=== PATIENT | female | born 1990 ===

== ENCOUNTER 2021-03-31 20:24 | Emergency (ER) | payer OTHER, SELFPAY ==
--- NOTE | ~2021-03-31 | XR_ITS ---
EXAMINATION: XR LUMBOSACRAL SPINE CLINICAL INFORMATION: Pain. COMPARISON: None TECHNIQUE: Three views of the lumbosacral spine. FINDINGS: The vertebral bodies and posterior elements are normal. The disc spaces are preserved and the vertebral alignment is normal. The paraspinal soft tissues are normal. Cholecystomy clips in the right upper quadrant. Surgical clip in left hemipelvis. XR/XR lumbar spine 2-3V IMPRESSION: Lumbar spine appears relatively well-preserved. No acute osseous findings.
[2021-03-31 20:32] VITALS: BP 127/72; PULSE 86; RESP 18; TEMP 36.7; O2SAT 99; BMI 41.5
[2021-03-31 20:55] LABS: Appearance Urine HAZY; Color Urine YELLOW; Glucose Urine UA NEG (NEG); Leukocyte Esterase Urine NEG (NEG); Nitrite Urine NEG (NEG); Urine Blood NEG (NEG); Urine Ketones NEG (NEG); Urine Protein NEG (NEG-TRACE)
[2021-03-31 20:57] LABS: UPreg QC Valid YES; Urine Pregnancy NEGATIVE (NEGATIVE)
--- NOTE | 2021-03-31 22:57 | ED_ITS ---
HPI - General Adult General Chief complaint: Abdominal Pain Stated complaint: Lower back pain Time Seen by Provider: 03/31/21 22:57 Source: patient Mode of arrival: ambulatory History of Present Illness HPI narrative: This is a 30-year-old female without significant past medical history who presents with atraumatic back pain for a few weeks and she states is now radiating into lower extremities as well as into the abdominal area. She de nies any fever, chills, nausea, vomiting, urinary pain/burning/frequency, shortness of breath/chest pain/palpitations. She states that she has ?tried everything? and that her primary care provider is unable to evaluate her until April. Related Data Previous Rx's Medication Instructions Recorded ketorolac 10 mg PO Q6H PRN 5 Days #20 tab 04/01/21 Allergies Allergy/AdvReac Type Severity Reaction Status Date / Time No Known Allergies Allergy Verified 03/31/21 20:34 Review of Systems Review of Systems: Pertinent positives and negatives as stated in HPI 10 point review of systems is otherwise negative. PMFSH Past Medical History Source: nursing notes reviewed Medical History Asthma delivery delivered Surgical History Hx of cholecystectomy Social History Social History Advance Directives: No Patient : No Physical Exam Vital Signs: Vital Signs: Last Vital Signs Temp 98.1 F 03/31/21 20:32 Pulse 86 03/31/21 20:32 Resp 18 03/31/21 20:32 BP 127/72 03/31/21 20:32 Pulse Ox 99 03/31/21 20:32 Body Mass Index 41.5 VITAL SIGNS: Reviewed. GENERAL: Well developed, well nourished, in no acute distress. HEAD: Normocephalic/atraumatic EYES: PERRLA, EOMI OROPHARYNX: no oral lesions noted, posterior pharynx clear LUNGS: Normal breath sounds. No adventitious sounds or accessory muscle use. SpO2<99> CARDIOVASCULAR: Regular rate and rhythm without noted murmurs ABDOMEN: Obese, Soft, non-tender, non-distended with bowel sounds. BACK: No midline vertebral tenderness NEUROLOGIC: Alert and oriented x 4. Strength and sensation to light touch were grossly intact x 4, bilateral lower extremities neurovascularly intact Course Course Course Narrative: 30-year-old female with history and clinical presentation consistent with chronic back pain and radicular symptoms. Will attempt combination analgesics for pain control. Review of all investigations negative for any acute findings and on re- evaluation patient states her pain has had minimal improvement. Patient reassu red and provided with outpatient regimen for pain control. Medical Decision Making Lab Data Labs: Lab Results 03/31/21 03/31/21 Range/Units 20:47 20:47 Urine Color YELLOW Urine Appearance HAZY Urine pH 7.0 (5.0-8.0) Ur Specific [place] 1.010 (1.005-1.025) Urine Protein NEG (NEG-TRACE) MG/DL Urine Glucose (UA) NEG (NEG) MG/DL Urine Ketones NEG (NEG) MG/DL Urine Blood NEG (NEG) Urine Nitrite NEG (NEG) Ur Leukocyte Esterase NEG (NEG) Urine Test NEGATIVE (NEGATIVE) Discharge Plan Discharge Clinical Impression: Back pain Patient Disposition: Home, Self-Care Instructions: Chronic Back Pain (DC), Lower Back Exercises (ED) Additional Instructions: 1. Tylenol 1000 mg, orally, every 6 hours as needed for pain control. Do not exceed 4000 mg within 24 hours. 2. Lidocaine patch, available [id number], apply to area of maximal tenderness as directed on the outside packaging. 3. Follow-up with your primary care provider in the next 2-3 days for re- evaluation. Return to the ER for acute worsening of your symptoms. Prescriptions: New ketorolac 10 mg tablet 10 mg PO Q6H PRN (Reason: pain) 5 Days Qty: 20 RF: 0 Referrals: Physician,Unknown [Primary Care Provider] - 2 days
[2021-04-01] MEDS: Acetaminophen 325 MG TABLET 975 MG PO (00:01)
[2021-04-01] MEDS: Ketorolac Tromethamine 15 MG/ML VIAL IM (00:02)
[2021-04-01] MEDS: Lidocaine 4 % Patch ADH..PATCH 1 PATCH TRANSDERMA (00:02)
[2021-04-01 01:52] VITALS: BP 121/66; PULSE 74; RESP 16; O2SAT 100
--- NOTE | 2021-04-01 01:54 | PC.NURSE ---
pt seated in hallway, awake and alert. pt reports she has been experiencing lower mid back pain for months, and new suprapubic abdominal pain for days. her last period was 1 week ago, normal amount and flow.
== END 2021-04-01 02:16 | disposition home or self-care (01) ==
PROVIDERS: Emergency Provider Student in an Organized Health Care Education/Training Program
DX: M54.9 Dorsalgia, unspecified (principal)
CPT/HCPCS: 72100; 81003; 81025; 96372; 99284; J1885

== ENCOUNTER → 2021-09-02 12:20 | Outpatient (BNVA) | payer OTHER, SELFPAY | PROVIDERS: PCP Internal Medicine; Referring Provider Internal Medicine; Visit Provider Physician Assistant Surgical ==

== ENCOUNTER → 2021-09-10 07:25 | Outpatient (BNVA) | payer OTHER, SELFPAY | PROVIDERS: PCP Internal Medicine; Visit Provider Surgery ==

== ENCOUNTER 2021-09-11 09:55 | Outpatient (REF) | payer OTHER, SELFPAY ==
--- NOTE | ~2021-09-11 | XR_ITS ---
EXAMINATION: XR CHEST CLINICAL INFORMATION: Obesity COMPARISON: None TECHNIQUE: 2 views of the chest were obtained. FINDINGS: No significant abnormality is noted involving the heart, lungs, mediastinum, bony thorax or soft tissues. XR/XR chest 2V IMPRESSION: Unremarkable examination.
--- NOTE | 2021-09-11 10:03 | ECG_ITS ---
Test Reason : e66.01 Blood Pressure : / mmHG Vent. Rate : 071 BPM Atrial Rate : 071 BPM P-R Int : 158 ms QRS Dur : 078 ms QT Int : 370 ms P-R-T Axes : 028 061 033 degrees QTc Int : 402 ms Normal sinus rhythm Normal ECG No previous ECGs available Referred By: Joel España Electronically Signed By:WILLIAM RAMOS
[2021-09-11 10:13] LABS: MANUAL DIFF FLAG NO
[2021-09-11 10:43] LABS: Basophils Percent Auto 0.2 % (0-2); Eosinophils Absolute Auto 0.1 X10*3/uL (0.0-0.4); Eosinophils Percent Auto 1.2 % (0-4); Hematocrit 36.3 % (37.0-47.0); Hemoglobin 10.9 g/dl (12.0-16.0); Imm Gran Abs Auto 0.01 X10*3/uL (0.00-0.03); Imm Gran Pct Auto 0.2 % (0.0-0.4); Lymphocytes Absolute Auto 1.8 X10*3/uL (1.2-4.9); Lymphocytes Percent Auto 30.8 % (20-40); Mean Corpuscular Hemoglobin 24.1 pg (27.0-33.0); Mean Corpuscular Volume 80.3 fL (80.0-98.0); Mean Platelet Volume 10.9 fL (9.4-12.3); Monocytes Absolute Auto 0.3 X10*3/uL (0.1-1.2); Monocytes Percent Auto 4.6 % (2-11); Neutrophils Absolute Auto 3.7 x10*3/uL (2.0-8.3); Platelet Count 238 X10*3/uL (160-400); Red Blood Count 4.52 X10*6/uL (4.20-5.50); Red Cell Distribution Width 15.8 % (11.0-16.0); White Blood Count 5.9 X10*3/uL (4.8-10.8)
[2021-09-11 10:51] LABS: Estimated Average Glucose 100 mg/dL; Hemoglobin A1c % 5.1 %
[2021-09-11 11:15] LABS: Alanine Aminotransferase 16 U/L (0-31); Albumin Level 3.9 g/dL (3.5-5.0); Alkaline Phosphatase 75 U/L (39-117); Anion Gap 9 (12-20); Aspartate Amino Transferase 16 U/L (5-31); Bilirubin Total 0.3 mg/dL (0.0-1.0); Blood Urea Nitrogen 9 mg/dL (9-16); C Reactive Protein 0.35 mg/dL (< or = 0.50); Calcium 9.2 mg/dL (8.4-10.2); Carbon Dioxide 29 mmol/L (22-29); Chloride 106 mmol/L (96-108); Cholesterol 174 mg/dL; Estimated Glomerular Filt Rate > 60; Glucose Random 89 mg/dL (60-115); HDL Cholesterol 33 mg/dL; Iron 67 mcg/dL (30-160); LDL Cholesterol Calculated 75 mg/dl; Percent Iron Saturation 16 % (15-50); Sodium 140 mmol/L (135-145); Total Iron Binding Capacity 409 mcg/dL (228-428); Triglycerides 333 mg/dL; Unsaturated Iron Binding 342 ug/dL
[2021-09-11 11:35] LABS: Ferritin 7 ng/mL (10-122); Insulin 16 uU/mL (2-29); TSH reflex Free T4 1.31 uIU/mL (0.32-4.0); Vitamin D 25-OH Total 10.8 ng/mL (>30)
[2021-09-11 12:14] LABS: Folate 13.3 ng/mL (> or = 4.0); Vitamin B12 394 pg/mL (200-900)
[2021-09-15 09:01] LABS: Vitamin B1 8 nmol/L (8-30)
[2021-09-15 15:32] LABS: Calcium (PTHI) 9.2 mg/dL (8.6-10.2); PTHI 47 pg/mL (14-64)
[2021-09-16 00:32] LABS: Zinc 53 mcg/dL (60-130)
[2021-09-16 16:37] LABS: Vitamin A 31 mcg/dL (38-98)
== END 2021-09-11 09:56 | disposition home or self-care (01) ==
LOC: HO.LAB 09:55
PROVIDERS: Visit Provider Surgery
DX: E66.01 Morbid (severe) obesity due to excess calories (principal)
CPT/HCPCS: 36415; 71046; 80053; 80061; 82306; 82607; 82728; 82746; 83036; 83525; 83540; 83970; 84425; 84443; 84590; 84630; 85025; 86140; 93005

== ENCOUNTER 2021-10-07 07:39 | Outpatient (REF) | payer OTHER, SELFPAY ==
[2021-10-08 12:01] LABS: H Pylori Breath Test Negative (Negative)
== END 2021-10-07 07:40 | disposition home or self-care (01) ==
LOC: HO.LNP 07:39
PROVIDERS: PCP Internal Medicine; Visit Provider Surgery
DX: E66.01 Morbid (severe) obesity due to excess calories (principal); Z68.41 Body mass index [BMI] 40.0-44.9, adult; Z90.49 Acquired absence of other specified parts of digestive tract; Z11.0 Encounter for screening for intestinal infectious diseases
CPT/HCPCS: 83013; 99211

== ENCOUNTER 2021-10-10 10:40 | Outpatient (REF) | payer OTHER, SELFPAY ==
--- NOTE | ~2021-10-10 | US_ITS ---
EXAMINATION: US COMPLETE ABDOMEN WITH LIVER ELASTOGRAPHY CLINICAL INFORMATION: Obesity COMPARISON: None. TECHNIQUE: Real-time imaging of the abdominal viscera. Noninvasive ultrasound liver fibrosis assessment is performed using Madeleine ElastPQ point quantification shear wave elastography (pSWE) with a C5-2 MHz transducer. Multiple elastography samples are obtained. FINDINGS: PANCREAS: Normal. The visualized pancreatic head and body are normal in appearance. The remainder of the pancreas is obscured from visualization by the overlying bowel gas. ABDOMINAL AORTA: The proximal, middle, and distal aortic segments are normal in caliber. INFERIOR VENA CAVA: Visualized portions are normal. LIVER: The liver demonstrates normal size, contour and mildly heterogeneous in echogenicity. No focal lesion or intrahepatic biliary duct dilatation. The right lobe measures 16.7 cm in length. The left lobe measures 12.7 cm in length. Portal flow is towards the liver (hepatopetal). Shear wave liver elastography median stiffness is 1.54 m/s (reference: normal median stiffness is 1.3 m/s or less). IQR/median stiffness to assess sampling precision is .05 (reference: good quality data set is IQR/median stiffness of 0.15 or less). GALLBLADDER: Normal. The gallbladder is physiologically distended without evidence of stones, sludge, polyps, wall thickening or pericholecystic fluid. COMMON BILE DUCT: Normal in caliber measuring 0.2 cm in diameter. RIGHT KIDNEY: Normal. No hydronephrosis. No renal calculi or focal parenchymal lesions. The kidney measures 12.1 cm in maximum dimension. LEFT KIDNEY: Normal. No hydronephrosis. No renal calculi or focal parenchymal lesions. The kidney measures 12.4 cm in maximum dimension. SPLEEN: Normal. The spleen measures 12.3 cm in maximum dimension. FREE FLUID: None. US/US abdomen comp w elastography IMPRESSION: 1. Mildly heterogeneous echotexture the liver. 2. Liver elastography: Measurements are suggestive of compensated advanced chronic liver disease but need further test for confirmation. REFERENCE: Society of Radiologists in Ultrasound Liver Stiffness Thresholds (2020): LIVER STIFFNESS THRESHOLDS: *Liver Stiffness equal or less than 1.3 m/s: High probability of being normal. *Liver Stiffness less than 1.7 m/s: In the absence of other known clinical signs, rules out compensated advanced chronic liver disease. *Liver Stiffness 1.7-2.1 m/s: Suggestive of compensated advanced chronic liver disease but need further test for confirmation. *Liver Stiffness over 2.1 m/s: Rules in compensated advanced chronic liver disease. *Liver Stiffness over 2.4 m/s: Suggestive of clinically significant portal hypertension. QUALITY OF DATA SET: *IQR/Median value equal or less than 0.15 implies a quality data set. *IQR/Median value over 0.15 implies a poor quality data set. SIGNIFICANT CHANGE FROM PRIOR EXAM: Significant change if liver stiffness measurement is 10% or greater from prior exam. OTHER CONSIDERATIONS: The stage of liver fibrosis may be overestimated in the setting of acute hepatitis, liver inflammation, elevated liver function tests, hepatic vascular congestion, obstructive cholestasis, non-fasting state, and infiltrative diseases such as amyloidosis and lymphoma. In some patients with NAFLD, the liver stiffness thresholds for compensated advanced chronic liver disease may be lower. In causes other than viral hepatitis and NAFLD, liver stiffness thresholds are not well established.
== END 2021-10-10 10:41 | disposition home or self-care (01) ==
LOC: HO.US 10:40
PROVIDERS: Visit Provider Surgery
DX: E66.01 Morbid (severe) obesity due to excess calories (principal)
CPT/HCPCS: 76705; 76981

== ENCOUNTER → 2021-10-13 08:12 | Outpatient (BNVA) | payer OTHER, SELFPAY | PROVIDERS: PCP Internal Medicine; Visit Provider Dietitian, Registered | DX: E66.01 Morbid (severe) obesity due to excess calories (principal) | CPT/HCPCS: 97802 ==

== ENCOUNTER 2021-10-20 09:26 | Outpatient (REF) | payer OTHER, SELFPAY ==
[2021-10-20 09:47] LABS: Binax Internal Control QC Valid; Binax Now Covid-19 Ag Negative (Negative)
== END 2021-10-20 09:27 | disposition home or self-care (01) ==
LOC: HO.HMGCLDS 09:26
PROVIDERS: Internal Medicine; Visit Provider Internal Medicine
DX: Z20.822 Contact with and (suspected) exposure to COVID-19 (principal); J06.9 Acute upper respiratory infection, unspecified
CPT/HCPCS: 36415

== ENCOUNTER 2021-10-20 17:16 | Emergency (ER) | payer OTHER, SELFPAY ==
[2021-10-20 17:36] VITALS: BP 129/57; PULSE 111; RESP 22; TEMP 38.8; O2SAT 100; BMI 43.4
[2021-10-20] MEDS: Ibuprofen 600 MG TABLET PO (17:46)
[2021-10-20 18:29] LABS: MANUAL DIFF FLAG NO
[2021-10-20 18:30] LABS: Eosinophils Absolute Auto 0.1 X10*3/uL (0.0-0.4); Hematocrit 35.4 % (37.0-47.0); Hemoglobin 11.3 g/dl (12.0-16.0); Imm Gran Abs Auto 0.02 X10*3/uL (0.00-0.03); Imm Gran Pct Auto 0.3 % (0.0-0.4); Lymphocytes Absolute Auto 0.6 X10*3/uL (1.2-4.9); Lymphocytes Percent Auto 10.6 % (20-40); Mean Corpuscular HGB Conc 31.9 g/dl (31.0-35.0); Mean Corpuscular Hemoglobin 25.3 pg (27.0-33.0); Mean Corpuscular Volume 79.2 fL (80.0-98.0); Monocytes Absolute Auto 0.3 X10*3/uL (0.1-1.2); Monocytes Percent Auto 4.7 % (2-11); Neutrophils Percent Auto 83.4 % (45-73); Platelet Count 209 X10*3/uL (160-400); Red Blood Count 4.47 X10*6/uL (4.20-5.50); Red Cell Distribution Width 16.2 % (11.0-16.0)
[2021-10-20 18:32] LABS: Appearance Urine CLEAR; Color Urine YELLOW; Glucose Urine UA NEG (NEG); Leukocyte Esterase Urine NEG (NEG); Nitrite Urine NEG (NEG); PH 6.5 (5.0-8.0); Urine Blood NEG (NEG); Urine Ketones NEG (NEG); Urine Protein NEG (NEG-TRACE)
[2021-10-20 18:35] LABS: Urine Pregnancy NEGATIVE (NEGATIVE)
[2021-10-20 18:36] LABS: UPreg QC Valid YES
[2021-10-20 18:41] LABS: Lactic Acid 0.8 mmol/L (0.5-2.0)
[2021-10-20 18:41] LABS: COVID-19 Test Positive (Negative)
[2021-10-20 18:47] LABS: Alanine Aminotransferase 27 U/L (0-31); Albumin Level 4.1 g/dL (3.5-5.0); Alkaline Phosphatase 89 U/L (39-117); Anion Gap 12 (12-20); Aspartate Amino Transferase 23 U/L (5-31); Bilirubin Direct < 0.2 mg/dL (0.0-0.5); Bilirubin Total 0.4 mg/dL (0.0-1.0); Blood Urea Nitrogen 9 mg/dL (9-16); Calcium 9.3 mg/dL (8.4-10.2); Carbon Dioxide 23 mmol/L (22-29); Chloride 105 mmol/L (96-108); Creatinine Clr Calc Pharmacy 117.8; Estimated Glomerular Filt Rate > 60; Glucose Random 95 mg/dL (60-115); Potassium 3.8 mmol/L (3.3-5.1); Sodium 136 mmol/L (135-145); Total Protein 7.5 g/dL (6.5-8.0)
--- NOTE | 2021-10-20 21:12 | ED_ITS ---
HPI - Abdominal Pain General Chief Complaint: Abdominal Pain Stated Complaint: abd pain Time Seen by Provider: 10/20/21 20:27 Source: patient Mode of arrival: ambulatory Limitations: no limitations History of Present Illness HPI narrative: 30-year-old female previously healthy here with reports of 3 days of intermittent abdominal cramping with low back pain, headache, cough and fever. Patient also limiting some chills and body aches. No vomiting, diarrhea, difficulty breathing, chest pain. Has not received COVID vaccine Related Data Home Medications Medication Instructions Recorded Confirmed cyclobenzaprine 10 mg tablet 10 mg PO BEDTIME 09/10/21 09/10/21 ibuprofen 800 mg tablet 800 mg PO TID 09/10/21 09/10/21 Previous Rx's Medication Instructions Recorded cholecalciferol (vitamin D3) 125 125 mcg PO DAILY #30 cap 09/18/21 mcg (5,000 unit) capsule iron,carbonyl 65 mg-vitamin C 125 1 tab PO DAILY #30 tab 09/18/21 mg tablet,delayed release (Vitron-C) mecobalamin (vitamin B12) 1,000 1,000 mcg SUBLINGUAL DAILY #30 tab 09/18/21 mcg disintegrating tablet,sublingual vitamin A acetate 10,000 unit 10,000 unit .ROUTE .COMPLEX #30 tab 09/18/21 sublingual tablet zinc gluconate 10 mg lozenges 10 mg PO DAILY #100 ea 09/18/21 ondansetron HCl 4 mg tablet 4 mg PO Q6H PRN #30 tab 10/07/21 (Zofran) Allergies Allergy/AdvReac Type Severity Reaction Status Date / Time No Known Allergies Allergy Verified 10/20/21 09:11 Review of Systems Review of Systems Yes all other systems are reviewed and are negative Constitutional: Reports no additional constitutional complaints, Reports body ache(s), Reports chills, Reports fever(s), Reports headache(s) and Denies we akness Eyes: Reports no additional eye complaints and Denies change in vision Reports system reviewed and no additional complaints, except as documented, Denies dizziness, Reports headache(s), Denies nasal congestion, Denies nasal discharge and Denies neck pain Cardiovascular: Reports no additional cardiovascular complaints, Denies chest pain, Denies leg edema and Denies dyspnea Respiratory: Reports no additional respiratory complaints and Denies dyspnea Gastrointestinal: Reports no additional gastrointestinal complaints, Reports abdominal pain, Denies diarrhea, Denies nausea and Denies vomiting Genitourinary: Reports no additional female genitourinary complaints and Denies urinary incontinence Musculoskeletal: Reports no additional musculoskeletal complaints, Denies back pain, Denies arthralgias, Denies joint swelling, Denies neck pain, Denies numbness and Denies tingling Skin/Breast: Reports system reviewed and no additional complaints, except as docu and Denies rash Reports system reviewed and no additional complaints, except as documented, Denies Abnormal speech present, Denies dizziness, Reports headache(s), Denies numbness, Denies tingling and Denies weakness Physical Exam Vital Signs: Vital Signs: Last Vital Signs Temp 97.6 F 10/20/21 21:14 Pulse 99 10/20/21 21:14 Resp 22 H 10/20/21 21:14 BP 119/63 10/20/21 21:14 Pulse Ox 98 10/20/21 21:14 BMI result Body Mass Index 43.4 Const: General: cooperative, healthy appearing, comfortable and no acute distress Orientation/consciousness: patient oriented x3 Limitations: no limitations HENMT: Head: Yes normal to inspection Ears: hearing grossly normal bilaterally and TM's normal bilaterally General nose exam: Normal external nose present Face and sinus: Yes normal facial exam Mouth: Normal oral and palatal mucosa present Throat: Yes posterior oropharynx normal Eyes: General: appearance normal, both eyes and all related structures Pupils: Equal, round and reactive pupils present Neck: Neck: Yes normal visual inspection, Yes full ROM, Yes no lymphadenopathy and Yes no meningeal signs Chest: Chest palpation & inspection: normal inspection of the chest Resp: Effort & Inspection: normal respiratory effort Auscultation: clear to auscultation bilaterally Cardio: Rate: regular rate Rhythm: regular rhythm Peripheral pulses: Peripheral pulses 2+ throughout GI: Inspection: Yes normal to inspection Palpation (GI): Soft to palpation and nontender Auscultation: normal bowel sounds Back/Spine/Pelvis: Thoracic/Lumbar Spine: thoracic and lumbar spine normal to inspection Skin: General skin exam: no rashes or lesions noted Neuro: General: patient oriented x3, no meningeal signs, no focal motor deficits and normal sensation to monofilament Cranial nerves: Yes Equal, round and reactive pupils present Cognition (Neuro): normal cognition Speech: No Abnormal speech present Gait exam (Neuro): Normal gait present Motor exam (neuro): 02/12 motor strength present throughout Extrem: General: Yes normal to inspection Course Course Course Narrative: 30-year-old female here with multiple complaints. On arrival the patient has a fever with mild tachycardia and tachypnea. Tachypnea and ta chycardia are secondary to fever and not from infection. Patient received Motrin at front for her fever. Her COVID test is positive. Her labs and urine are negative. I examined the patient she has no focal abdominal tenderness. She is feeling improved. Her temperature, heart rate respiratory rate have all improved. Lungs are clear. No hypoxia or tachypnea. Plan for discharge home with primary care follow-up as needed. Reviewed quarantine with the patient. Reviewed worrisome signs and symptoms. Comfortable discharge home. MDM - Abdominal Pain Medical Records Attestation: I reviewed the patient's medical records. Lab Data Attestation: I reviewed the patient's lab results. Result diagrams: 10/20/21 18:22 10/20/21 18:22 Labs: Lab Results 10/20/21 10/20/21 10/20/21 Range/Units 18:10 18:10 18:11 WBC (4.8-10.8) X10*3/uL RBC (4.20-5.50) X10*6/uL Hgb (12.0-16.0) g/dl Hct (37.0-47.0) % MCV (80.0-98.0) fL MCH (27.0-33.0) pg MCHC (31.0-35.0) g/dl RDW (11.0-16.0) % Plt Count (160-400) X10*3/uL MPV (9.4-12.3) fL Immature Gran % (Auto) (0.0-0.4) % Neut % (Auto) (45-73) % Lymph % (Auto) (20-40) % [place] % (Auto) (2-11) % Eos % (Auto) (0-4) % Baso % (Auto) (0-2) % Lymph # (Auto) (1.2-4.9) X10*3/uL [place] # (Auto) (0.1-1.2) X10*3/uL Eos # (Auto) (0.0-0.4) X10*3/uL Baso # (Auto) (0.0-0.2) X10*3/uL Abs Immat Gran (auto) (0.00-0.03) X10*3/uL Absolute Neuts (auto) (2.0-8.3) x10*3/uL Absolute Nucleated RBC (0.0-0.012) X10*3/uL Nucleated RBC % (auto) (0.0-0.2) /100WBC Sodium (135-145) mmol/L Potassium (3.3-5.1) mmol/L Chloride (96-108) mmol/L Carbon Dioxide (22-29) mmol/L Anion Gap (12-20) BUN (9-16) mg/dL Creatinine (0.5-1.4) mg/dL Estim Creat Clear Calc Estimated GFR Random Glucose (60-115) mg/dL Lactic Acid (0.5-2.0) mmol/L Calcium (8.4-10.2) mg/dL Total Bilirubin (0.0-1.0) mg/dL Direct Bilirubin (0.0-0.5) mg/dL AST (5-31) U/L ALT (0-31) U/L Alkaline Phosphatase (39-117) U/L Total Protein (6.5-8.0) g/dL Albumin (3.5-5.0) g/dL Urine Color YELLOW Urine Appearance CLEAR Urine pH 6.5 (5.0-8.0) Ur Specific [place] 1.020 (1.005-1.025) Urine Protein NEG (NEG-TRACE) MG/DL Urine Glucose (UA) NEG (NEG) MG/DL Urine Ketones NEG (NEG) MG/DL Urine Blood NEG (NEG) Urine Nitrite NEG (NEG) Ur Leukocyte Esterase NEG (NEG) Urine Test NEGATIVE (NEGATIVE) COVID-19 ([facility]) Positive A (Negative) COVID-19 Clin Com See Note 10/20/21 10/20/21 10/20/21 Range/Units 18:21 18:22 18:22 WBC 6.0 (4.8-10.8) X10*3/uL RBC 4.47 (4.20-5.50) X10*6/uL Hgb 11.3 L (12.0-16.0) g/dl Hct 35.4 L (37.0-47.0) % MCV 79.2 L (80.0-98.0) fL MCH 25.3 L (27.0-33.0) pg MCHC 31.9 (31.0-35.0) g/dl RDW 16.2 H (11.0-16.0) % Plt Count 209 (160-400) X10*3/uL MPV 10.0 (9.4-12.3) fL Immature Gran % (Auto) 0.3 (0.0-0.4) % Neut % (Auto) 83.4 H (45-73) % Lymph % (Auto) 10.6 L (20-40) % [place] % (Auto) 4.7 (2-11) % Eos % (Auto) 1.0 (0-4) % Baso % (Auto) 0.0 (0-2) % Lymph # (Auto) 0.6 L (1.2-4.9) X10*3/uL [place] # (Auto) 0.3 (0.1-1.2) X10*3/uL Eos # (Auto) 0.1 (0.0-0.4) X10*3/uL Baso # (Auto) 0.0 (0.0-0.2) X10*3/uL Abs Immat Gran (auto) 0.02 (0.00-0.03) X10*3/uL Absolute Neuts (auto) 5.0 (2.0-8.3) x10*3/uL Absolute Nucleated RBC 0.000 (0.0-0.012) X10*3/uL Nucleated RBC % (auto) 0.0 (0.0-0.2) /100WBC Sodium 136 (135-145) mmol/L Potassium 3.8 (3.3-5.1) mmol/L Chloride 105 (96-108) mmol/L Carbon Dioxide 23 (22-29) mmol/L Anion Gap 12 (12-20) BUN 9 (9-16) mg/dL Creatinine 0.79 (0.5-1.4) mg/dL Estim Creat Clear Calc 117.8 Estimated GFR > 60 Random Glucose 95 (60-115) mg/dL Lactic Acid 0.8 (0.5-2.0) mmol/L Calcium 9.3 (8.4-10.2) mg/dL Total Bilirubin 0.4 (0.0-1.0) mg/dL Direct Bilirubin < 0.2 (0.0-0.5) mg/dL AST 23 D (5-31) U/L ALT 27 (0-31) U/L Alkaline Phosphatase 89 (39-117) U/L Total Protein 7.5 (6.5-8.0) g/dL Albumin 4.1 (3.5-5.0) g/dL Urine Color Urine Appearance Urine pH (5.0-8.0) Ur Specific [place] (1.005-1.025) Urine Protein (NEG-TRACE) MG/DL Urine Glucose (UA) (NEG) MG/DL Urine Ketones (NEG) MG/DL Urine Blood (NEG) Urine Nitrite (NEG) Ur Leukocyte Esterase (NEG) Urine Test (NEGATIVE) COVID-19 ([facility]) (Negative) COVID-19 Clin Com Discharge Plan Discharge Clinical Impression: COVID-19 Patient Disposition: Home, Self-Care Instructions: COVID-19 (Coronavirus Disease 2019) (ED) Additional Instructions: Quarantine for 10 days from onset of symptoms Increase fluids, rest Motrin or Tylenol for pain or fever as needed Prescriptions: No Action Vitron-C 65 mg iron- 125 mg tablet,delayed release (DR/EC) 1 tab PO DAILY Qty: 30 RF: 2 vitamin A acetate 10,000 unit tablet, sublingual 10,000 unit .ROUTE .COMPLEX Qty: 30 RF: 2 cholecalciferol (vitamin D3) 125 mcg (5,000 unit) capsule 125 mcg PO DAILY Qty: 30 RF: 2 mecobalamin (vitamin B12) 1,000 mcg tablet,disintegrating 1,000 mcg sublingual DAILY Qty: 30 RF: 2 zinc gluconate 10 mg lozenge 10 mg PO DAILY Qty: 100 RF: 0 ondansetron HCl [Zofran] 4 mg tablet 4 mg PO Q6H PRN (Reason: nausea and vomiting) Qty: 30 RF: 2 ibuprofen 800 mg tablet 800 mg PO TID RF: 0 cyclobenzaprine 10 mg tablet 10 mg PO BEDTIME RF: 0 Referrals: Physician,Unknown J [Primary Care Provider] - 2 days PMF Past Medical History Attestation statement: The following information was validated with the patient. Source: old records reviewed and nursing notes reviewed Medical History Asthma delivery delivered Morbid obesity Surgical History Hx of cholecystectomy Social History Social History Advance Directives: No Advance Directives Information Provided: Yes Patient : No
[2021-10-20 21:14] VITALS: BP 119/63; PULSE 99; RESP 22; TEMP 36.4; O2SAT 98
== END 2021-10-20 21:46 | disposition home or self-care (01) ==
PROVIDERS: Emergency Provider Internal Medicine
DX: U07.1 COVID-19 (principal); R50.9 Fever, unspecified; R00.0 Tachycardia, unspecified
CPT/HCPCS: 36415; 80053; 81003; 81025; 82248; 83605; 85025; 87040; 87147; 87205; 87635; 99284

== ENCOUNTER → 2021-10-29 08:04 | Outpatient (BNVA) | payer OTHER, SELFPAY | PROVIDERS: Referring Provider Surgery; Visit Provider Dietitian, Registered | DX: E66.01 Morbid (severe) obesity due to excess calories (principal) | CPT/HCPCS: 97803 ==

== ENCOUNTER → 2021-10-31 08:01 | Outpatient (BNVA) | payer OTHER, SELFPAY | PROVIDERS: PCP Internal Medicine; Visit Provider Surgery | DX: R11.0 Nausea (principal); E66.01 Morbid (severe) obesity due to excess calories ==

== ENCOUNTER 2021-11-25 10:20 | Outpatient (REF) | payer OTHER, SELFPAY ==
--- NOTE | ~2021-11-25 | FL_ITS ---
EXAMINATION: XR FLUOROSCOPY UPPER GI WITH AIR CLINICAL INFORMATION: Morbid to severe obesity due to excess calories. COMPARISON: None. TECHNIQUE: Routine upper GI air-contrast study was performed in upright and lying position. FINDINGS: Following oral administration of thick barium and effervescent granules, there is normal propagation of bolus from the oral cavity through the pharynx and esophagus and into the stomach without any evidence of obstruction, narrowing or stricture. On placing patient supine and prone lying, the course, caliber and peristalsis of the stomach and duodenum are normal. The mucosal pattern of the stomach and the duodenum is normal. There is mild gastroesophageal reflux into the mid esophagus without hiatal hernia. There is evidence of previous cholecystectomy. FLUOROSCOPY TIME: 1.2 minutes DOSE AREA PRODUCT: 20.807 uGy-m2 (microgray-meter squared) FL/FL upper GI w air IMPRESSION: Mild gastroesophageal reflux in mid esophagus without hiatal hernia.
== END 2021-11-25 10:21 | disposition home or self-care (01) ==
LOC: HO.XRAY 10:20
PROVIDERS: Visit Provider Surgery
DX: E66.01 Morbid (severe) obesity due to excess calories (principal)
CPT/HCPCS: 74246

== ENCOUNTER → 2021-12-05 08:24 | Outpatient (BNVA) | payer OTHER, SELFPAY | PROVIDERS: PCP Internal Medicine; Visit Provider Surgery ==

== ENCOUNTER → 2021-12-12 08:52 | Outpatient (BNVA) | payer OTHER, SELFPAY | PROVIDERS: PCP Internal Medicine; Visit Provider Nurse Practitioner Family | DX: M53.3 Sacrococcygeal disorders, not elsewhere classified (principal) | CPT/HCPCS: 99202 ==

== ENCOUNTER → 2022-01-12 08:14 | Outpatient (BNVA) | payer OTHER, SELFPAY | PROVIDERS: PCP Internal Medicine; Visit Provider Surgery | DX: Z13.89 Encounter for screening for other disorder (principal) ==

== ENCOUNTER → 2022-02-06 08:13 | Outpatient (BNVA) | payer OTHER, SELFPAY | PROVIDERS: PCP Internal Medicine; Visit Provider Surgery | DX: Z13.89 Encounter for screening for other disorder (principal) ==

== ENCOUNTER → 2022-02-09 11:39 | Outpatient (BNVA) | payer OTHER, SELFPAY | PROVIDERS: PCP Internal Medicine; Referring Provider Internal Medicine; Visit Provider Physician Assistant | DX: Z13.89 Encounter for screening for other disorder (principal) ==

== ENCOUNTER → 2022-03-13 08:09 | Outpatient (BNVA) | payer OTHER, SELFPAY | PROVIDERS: PCP Internal Medicine; Visit Provider Surgery | DX: Z13.89 Encounter for screening for other disorder (principal) ==

== ENCOUNTER 2022-10-01 08:04 | Emergency (ER) | payer OTHER, SELFPAY ==
[2022-10-01 08:14] VITALS: BP 131/72; PULSE 117; RESP 20; TEMP 36.9; O2SAT 97; BMI 45.3
--- NOTE | 2022-10-01 08:35 | ED.GENADULT ---
HPI - General Adult General Chief complaint: Upper Respiratory Symptoms Stated complaint: fever, cough Time Seen by Provider: 10/01/22 08:22 Source: patient Mode of arrival: ambulatory Limitations: no limitations History of Present Illness HPI narrative: Patient is a 31 year old assigned female at with no reported medical history presenting to the emergency department today with a cough and congestion. Patient states that over the last week she has had a cough and congestion. Patient denies any dizziness, lightheadedness, abdominal pain, nausea, vomiting, chills, blurry vision, double vision, loss of vision, chest pain, difficulty breathing, shortness of breath, back pain, night sweats, pain with urination, increased urinary frequency, increased urinary urgency, blood in her urine or stool, syncope or a near syncopal episode, recent trauma or falls, bowel incontinence, bladder incontinence, bowel retention, bladder retention, or any other complaints at this time. Onset (ago): week(s) (1) Severity: mild Severity scale (1-10): 3 Relieving factors: none Exacerbating factors: none Associated symptoms: cough Treatments prior to arrival: none Related Data Home Medications Medication Instructions Recorded Confirmed cyclobenzaprine 10 mg tablet 10 mg PO BEDTIME 09/10/21 12/12/21 ibuprofen 800 mg tablet 800 mg PO TID 09/10/21 12/12/21 Previous Rx's Medication Instructions Recorded cholecalciferol (vitamin D3) 125 125 mcg PO DAILY #30 caps 09/18/21 mcg (5,000 unit) capsule mecobalamin (vitamin B12) 1,000 1,000 mcg sublingual DAILY #30 tabs 09/18/21 mcg disintegrating tablet,sublingual ondansetron HCl 4 mg tablet 4 mg PO Q6H PRN nausea and 10/07/21 (Zofran) vomiting #30 tabs Allergies Allergy/AdvReac Type Severity Reaction Status Date / Time No Known Allergies Allergy Verified 12/12/21 09:11 Review of Systems Constitutional: Constitutional: Reports no additional constitutional complaints, Denies chills, Denies fever(s) and Denies night sweats Eyes: Eyes: Reports no additional eye complaints, Denies blurry vision, Denies change in vision, Denies diplopia, Denies eye discharge, Denies loss of vision and Denies eye pain ENT: Denies dizziness and Reports nasal congestion Cardiovascular: Cardiovascular: Reports no additional cardiovascular complaints, Denies chest pain, Denies lightheadedness, Denies Loss of Consciousness and Denies dyspnea Respiratory: Respiratory: Reports no additional respiratory complaints, Reports cough and Denies dyspnea Gastrointestinal: Gastrointestinal: Reports no additional gastrointestinal complaints, Denies abdominal pain, Denies melena, Denies hematochezia, Denies change in bowel habits and Denies change in stool character Genitourinary: Genitourinary: Denies hematuria, Denies urinary frequency, Denies dysuria, Denies urinary incontinence, Denies urinary hesitancy and Denies urinary urgency Musculoskeletal: Musculoskeletal: Reports no additional musculoskeletal complaints, Denies numbness and Denies tingling Neurologic: Denies dizziness, Denies loss of vision, Denies numbness and Denies tingling Psychiatric: Psychiatric: Reports no additional psychiatric complaints Endocrine: Endocrine: Reports no additional endocrine complaints Hematologic/Lymphatic: Hematologic/Lymphatic: Reports no additional hematologic/lymphatic complaints Allergic/Immunologic: Allergic/Immunologic: Reports no additional allergic/immunologic complaints PMFSH Past Medical History Attestation statement: The following information was validated with the patient. Source: old records reviewed and nursing notes reviewed Medical History Asthma delivery delivered Morbid obesity Surgical History Hx of cholecystectomy Social History Social History Advance Directives: No Physical Exam ED Vital Signs: Vital Signs - 24 hr 10/01/22 08:14 Temperature 98.4 F Pulse Rate 117 H Respiratory Rate 20 Blood Pressure 131/72 Pulse Oximetry 97 Oxygen Delivery Method Room Air BMI result Body Mass Index 45.3 Const General: cooperative, no acute distress, alert and awake Nutritional Appearance: well nourished Orientation/consciousness: patient oriented x3 Limitations: no limitations HENMT Head: Yes normal to inspection and Yes atraumatic Ears: hearing grossly normal bilaterally and external ears normal General nose exam: Normal external nose present, no nasal discharge noted and no epistaxis Face and sinus: Yes normal facial exam, No abrasion and No laceration Mouth: Normal oral and palatal mucosa present, no drooling and no muffled voice Eyes General: appearance normal, both eyes and all related structures Periorbital: periorbital findings normal Eyelids: Yes eyelids normal Conjunctivae: conjunctivae normal Pupils: Equal, round and reactive pupils present EOM: EOMs intact bilaterally Neck Neck: Yes normal visual inspection, Yes full ROM and Yes no lymphadenopathy Chest Chest palpation & inspection: normal inspection of the chest Resp Effort & Inspection: normal respiratory effort and able to speak in complete sentences Auscultation: clear to auscultation bilaterally Cardio Rate: regular rate Rhythm: regular rhythm GI Inspection: Yes normal to inspection Palpation (GI): Soft to palpation, not firm, nontender, no guarding and not rigid Neuro General: patient oriented x3 and moves all extremities Cranial nerves: Yes Equal, round and reactive pupils present Cognition (Neuro): normal cognition Motor exam (neuro): 5/5 motor strength present throughout Sensory Exam: Normal double simultaneous stimulation for sensation Coordination: [id number]-[id number] test normal Extrem General: Yes normal to inspection, Yes full ROM and Yes capillary refill normal Psych Appearance: grossly normal Mental Status: mental status grossly normal Affect: normal affect Attitude: cooperative Thought process: Normal thought process present Thought content: Normal thought content present Insight: Good insight present (Psych) Medical Decision Making Medical Decision Making MDM Narrative: Patient is a 31 year old assigned female at with no reported medical history presenting to the emergency department today with congestion and a cough. Patient's physical exam was unremarkable. Patient's influenza swab was positive. I explained my physical exam findings as well as all test results to the patient. I answered all questions asked by the patient. I stressed the importance of the patient taking her medication as prescribed. I stressed the importance of the patient following up with her primary care provider. I stressed the importance of the patient returning to the emergency department immediately if her symptoms were to worsen or if she were to develop any dizziness, shortness of breath, difficulty breathing, chest pain, blurry vision, loss of vision, nausea, vomiting, abdominal pain, fever, chills, back pain, or any other complaints. Patient verbalized agreement and understanding with this treatment plan and discharge. Differential Diagnosis Differential Diagnoses: The differential diagnosis associated with the presentation includes influenza Lab Data MDM Lab Attestation statement: I reviewed the patient's lab results. Labs: Lab Results 10/01/22 Range/Units 08:17 Influenza Type A (PCR) POSITIVE A (Negative) Influenza Type B (PCR) NEGATIVE (Negative) RSV RNA Qual (PCR) NEGATIVE (Negative) SARS-CoV-2 RNA (RT-PCR) NEGATIVE (Negative) Discharge Plan Discharge Clinical Impression: Influenza Patient Disposition: Home, Self-Care Additional Instructions: Follow up with your primary care provider. Return to the emergency department immediately if your symptoms worsen or if you develop any dizziness, shortness of breath, difficulty breathing, chest pain, blurry vision, loss of vision, nausea, vomiting, abdominal pain, fever, chills, back pain, or any other complaints. Prescriptions: No Action cholecalciferol (vitamin D3) 125 mcg (5,000 unit) capsule 125 mcg PO DAILY Qty: 30 2RF mecobalamin (vitamin B12) 1,000 mcg tablet,disintegrating 1,000 mcg sublingual DAILY Qty: 30 2RF Rx Instructions: place tablet under tongue and allow to dissolve for at least30 secs before swallowing ondansetron HCl [Zofran] 4 mg tablet 4 mg PO Q6H PRN (Reason: nausea and vomiting) Qty: 30 2RF ibuprofen 800 mg tablet 800 mg PO TID cyclobenzaprine 10 mg tablet 10 mg PO BEDTIME Referrals: Coral Glez MD [Primary Care Provider] - Stand Alone Forms: Work/School Release Print Language: [place]
[2022-10-01 09:10] LABS: Influenza A PCR POSITIVE (Negative); Influenza B PCR NEGATIVE (Negative); Resp Syncy Virus RNA Qual PCR NEGATIVE (Negative); SARS COV2 PCR INHOUSE NEGATIVE (Negative)
== END 2022-10-01 10:04 | disposition home or self-care (01) ==
PROVIDERS: Physician Assistant Medical; Emergency Provider Emergency Medicine Emergency Medical Services; PCP Internal Medicine
DX: J11.1 Influenza due to unidentified influenza virus with other respiratory manifestations (principal); R50.9 Fever, unspecified; Z20.822 Contact with and (suspected) exposure to COVID-19
CPT/HCPCS: 0241U; 99283

== ENCOUNTER 2024-01-28 09:53 | Outpatient (AMB) | payer OTHER, SELFPAY ==
--- NOTE | 2024-01-28 09:58 | MHC.OFFVIS ---
Vital Signs 01/28/24 10:00 Height 5 ft 1 in Weight 192 lb 4 oz BMI 36.3 BP 117/78 Blood Pressure Location Rt brachial Position Sitting Pulse 74 Pulse Source Pulse Oximeter Pulse Oximetry (%) 98 Oxygen Delivery Method Room Air Intake Visit Reasons: [employer]IVE: Peripheral Neuropathy-CONF Intake Note: Patient presents for peripheral neuropathy. Patient has been getting pain and burning sensation in hands and fingers, also experiencing weakness. Allergies No Known Allergies Allergy (Verified 02/10/24 09:26) Medication List - Last Reconciled 01/28/24 by BRYANNA Marroquin adalimumab (Humira(CF) Pen) mg subcut cholecalciferol (vitamin D3) 125 mcg PO DAILY cyclobenzaprine 10 mg PO BEDTIME galcanezumab-gnlm (Emgality Pen) 120 mg subcut ibuprofen 800 mg PO TID ibuprofen mg PO mecobalamin (vitamin B12) 1,000 mcg sublingual DAILY ondansetron HCl (Zofran) 4 mg PO Q6H PRN rizatriptan mg PO HPI Comments Details: Right-handed 33-yr-old female presents for neurological evaluation of: neuropathy. PMH: Gastric sleeve (February 17, 2023, wt prior to sx was 251 lbs) Anemia- recently referred to hematology at [facility] d/t recent ferritin 3. Asthma- Migraine- was daily prior to starting on Emgality a few months ago, having 1 migraine per week, which responds to Rizatriptan. Pt is f/b the [facility] for her migraine tx- Emgality and rizatriptan. Hidradenitis Suppurativa- had s/s x's past 3 yrs, improved on Humira- started a yr ago, managed by her weight loss physician, at [facility]. Pt reports 2 yrs ago, she started having shocking shooting pain a/w numbness in her legs, a/w weakness. Toes and feet can become stiff. Not sure if a/w color changes. Then a yr ago, she started having similar symptoms in her BUE, right more than left, shocking shooting pains, pins and needles, burning redness in the fingertips, and can wake up at night w/ Right forearm numbness/pins/numbness (sleeps supine w/ arms overhead, but does shift). Feels Right hand is weak, more difficulty opening a jar. This is worse when it is cold, especially during the winter. She has had a 60lb wt loss since the gastric bypass surgery, however her neuralgia symptoms now seem worse. Pt reports she had a recent BUE EMG/NCS at [facility]- per pt, showed a Patric mild ulnar neuropathy. XR c-spine- mild neuroforaminal narrowing at C3-C4. Has not had a LE EMG/NCS. Patient also endorses: BUE tremor- comes and goes, mild. Some nocturnal hot flashes. Leg cramps- more at night, but can happen at rest during the day. 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 Sometimes urge to move at rest, pretty active with 4 small children at home (10, 7 w/ ADGD, 6, 4). Creepy crawling sensation in arms and legs. Has had neck spasms and stiffness since the end of her last 4 yrs ago. Sometimes the neck can spasms at night. Uses a cervical support pillow. Has a h/o severe back pain- can wake up with body soreness, but has not been bothering her lately. Has changed her mattress. i [facility] Medical History (Updated 02/10/24 @ 11:59 by ADELAIDE Whitfield) Morbid obesity delivery delivered Asthma Surgical History (Updated 01/28/24 @ 10:04 by SAMM Bravo) H/O section H/O tubal ligation Hx of cholecystectomy Family History (Updated 01/28/24 @ 10:05 by SAMM Bravo) Father HTN (hypertension) Diabetes Mother HTN (hypertension) Social History (Updated 01/28/24 @ 10:06 by SAMM Bravo) Alcohol intake: never Patient Tobacco Use Status: Never used Tobacco Review of Systems Const All systems reviewed & are unremarkable except as noted in HPI and below Physical Exam Vital Signs: Last Vital Signs Pulse 74 01/28/24 10:00 BP 117/78 01/28/24 10:00 Pulse Ox 98 01/28/24 10:00 Oxygen Delivery Method Room Air 01/28/24 10:00 BMI result Body Mass Index 36.3 Const General: cooperative and no acute distress Orientation/consciousness: patient oriented x3 HEENT Head: Yes normocephalic Resp Effort & Inspection: normal respiratory effort and able to speak in complete sentences Neuro Other: Bilateral posterior cervical tightness. Forward head posture. Cervical ROM: limited. General: patient oriented x3, CN's II-XI intact bilaterally and deep tendon reflexes 2+ bilaterally Gait exam (Neuro): Normal gait present Motor exam (neuro): 5/5 motor strength present throughout Psych Appearance: grossly normal Mental Status: mental status grossly normal Speech and movement: Normal speech and movement present Affect: normal affect Attitude: cooperative Thought process: Normal thought process present Thought content: Normal thought content present Insight: Good insight present (Psych) Assessment & Plan Assessment & Plan (1) Paresthesia and pain of both upper extremities: Code(s): R20.2 - Paresthesia of skin; M79.601 - Pain in right arm; M79.602 - Pain in left arm Category: Medical (2) Muscle cramps: Code(s): R25.2 - Cramp and spasm Category: Medical (3) Tremor: Code(s): R25.1 - Tremor, unspecified Category: Medical (4) Ulnar neuropathy of both upper extremities: Code(s): G56.23 - Lesion of ulnar nerve, bilateral upper limbs Category: Medical Plan Will check labs for common etiologies of paresthesias, muscle cramps, tremor, RLS s/s. Concur w/ Hematology consult, as anemia and hypoferritinemia can be a/w increased RLS s/s PT eval & tx. Trial Gabapentin 100mg cap- 1-3 caps qhs. Future considerations- c-spine MRI, BLE EMG/NCS. Pt is f/b the [facility] for migraine. f/u in 2-3 months or sooner prn. Orders: Orders Ferritin 01/29/24 R20.2 - Paresthesia of skin, M79.601 - Pain in right arm, M79.602 - Pain in left arm, R25.2 - Cramp and spasm, E63.9 - Nutritional deficiency, unspecified, T73.0XXA - Starvation, initial encounter, D64.9 - Anemia, unspecified Erythrocyte Sedimentation Rate 01/29/24 R20.2 - Paresthesia of skin, M79.601 - Pain in right arm, M79.602 - Pain in left arm, R25.2 - Cramp and spasm, E63.9 - Nutritional deficiency, unspecified, T73.0XXA - Starvation, initial encounter, D64.9 - Anemia, unspecified Creatine Kinase Total 01/29/24 R20.2 - Paresthesia of skin, M79.601 - Pain in right arm, M79.602 - Pain in left arm, R25.2 - Cramp and spasm, E63.9 - Nutritional deficiency, unspecified, T73.0XXA - Starvation, initial encounter, D64.9 - Anemia, unspecified Vitamin B12 and Folate 01/29/24 R20.2 - Paresthesia of skin, M79.601 - Pain in right arm, M79.602 - Pain in left arm, R25.2 - Cramp and spasm, E63.9 - Nutritional deficiency, unspecified, T73.0XXA - Starvation, initial encounter, D64.9 - Anemia, unspecified Homocysteine 01/31/24 R20.2 - Paresthesia of skin, M79.601 - Pain in right arm, M79.602 - Pain in left arm, R25.2 - Cramp and spasm, E63.9 - Nutritional deficiency, unspecified, T73.0XXA - Starvation, initial encounter, D64.9 - Anemia, unspecified Hemoglobin A1c 01/29/24 R20.2 - Paresthesia of skin, M79.601 - Pain in right arm, M79.602 - Pain in left arm, R25.2 - Cramp and spasm, E63.9 - Nutritional deficiency, unspecified, T73.0XXA - Starvation, initial encounter, D64.9 - Anemia, unspecified Vitamin B1 01/29/24 R20.2 - Paresthesia of skin, M79.601 - Pain in right arm, M79.602 - Pain in left arm, R25.2 - Cramp and spasm, E63.9 - Nutritional deficiency, unspecified, T73.0XXA - Starvation, initial encounter, D64.9 - Anemia, unspecified Vitamin B3 (Niacin) 01/29/24 R20.2 - Paresthesia of skin, M79.601 - Pain in right arm, M79.602 - Pain in left arm, R25.2 - Cramp and spasm, E63.9 - Nutritional deficiency, unspecified, T73.0XXA - Starvation, initial encounter, D64.9 - Anemia, unspecified Vitamin B5 (Pantothenic Acid) 01/31/24 R20.2 - Paresthesia of skin, M79.601 - Pain in right arm, M79.602 - Pain in left arm, R25.2 - Cramp and spasm, E63.9 - Nutritional deficiency, unspecified, T73.0XXA - Starvation, initial encounter, D64.9 - Anemia, unspecified Vitamin B6 01/29/24 R20.2 - Paresthesia of skin, M79.601 - Pain in right arm, M79.602 - Pain in left arm, R25.2 - Cramp and spasm, E63.9 - Nutritional deficiency, unspecified, T73.0XXA - Starvation, initial encounter, D64.9 - Anemia, unspecified Vitamin C 01/31/24 R20.2 - Paresthesia of skin, M79.601 - Pain in right arm, M79.602 - Pain in left arm, R25.2 - Cramp and spasm, E63.9 - Nutritional deficiency, unspecified, T73.0XXA - Starvation, initial encounter, D64.9 - Anemia, unspecified Vitamin D 25-OH Total 01/29/24 R20.2 - Paresthesia of skin, M79.601 - Pain in right arm, M79.602 - Pain in left arm, R25.2 - Cramp and spasm, E63.9 - Nutritional deficiency, unspecified, T73.0XXA - Starvation, initial encounter, D64.9 - Anemia, unspecified Vitamin E 01/31/24 R20.2 - Paresthesia of skin, M79.601 - Pain in right arm, M79.602 - Pain in left arm, R25.2 - Cramp and spasm, E63.9 - Nutritional deficiency, unspecified, T73.0XXA - Starvation, initial encounter, D64.9 - Anemia, unspecified Zinc 01/29/24 R25.2 - Cramp and spasm, R20.2 - Paresthesia of skin, M79.601 - Pain in right arm, M79.602 - Pain in left arm, R25.1 - Tremor, unspecified IRVIN Reflex Titer and Pattern 01/29/24 R20.2 - Paresthesia of skin, M79.601 - Pain in right arm, M79.602 - Pain in left arm, R25.2 - Cramp and spasm, E63.9 - Nutritional deficiency, unspecified, T73.0XXA - Starvation, initial encounter, D64.9 - Anemia, unspecified Comprehensive Met. Panel 01/29/24 R20.2 - Paresthesia of skin, M79.601 - Pain in right arm, M79.602 - Pain in left arm, R25.2 - Cramp and spasm, E63.9 - Nutritional deficiency, unspecified, T73.0XXA - Starvation, initial encounter, D64.9 - Anemia, unspecified Complete Blood Count Auto Diff 01/29/24 R20.2 - Paresthesia of skin, M79.601 - Pain in right arm, M79.602 - Pain in left arm, R25.2 - Cramp and spasm, E63.9 - Nutritional deficiency, unspecified, T73.0XXA - Starvation, initial encounter, D64.9 - Anemia, unspecified CRP High Sensitivity 01/29/24 R20.2 - Paresthesia of skin, M79.601 - Pain in right arm, M79.602 - Pain in left arm, R25.2 - Cramp and spasm, E63.9 - Nutritional deficiency, unspecified, T73.0XXA - Starvation, initial encounter, D64.9 - Anemia, unspecified TSH reflex Free T4 01/29/24 R20.2 - Paresthesia of skin, M79.601 - Pain in right arm, M79.602 - Pain in left arm, R25.2 - Cramp and spasm, E63.9 - Nutritional deficiency, unspecified, T73.0XXA - Starvation, initial encounter, D64.9 - Anemia, unspecified IRON PROFILE 01/29/24 R20.2 - Paresthesia of skin, M79.601 - Pain in right arm, M79.602 - Pain in left arm, R25.2 - Cramp and spasm, E63.9 - Nutritional deficiency, unspecified, T73.0XXA - Starvation, initial encounter, D64.9 - Anemia, unspecified Methylmalonic Acid 01/29/24 R20.2 - Paresthesia of skin, M79.601 - Pain in right arm, M79.602 - Pain in left arm, R25.2 - Cramp and spasm, E63.9 - Nutritional deficiency, unspecified, T73.0XXA - Starvation, initial encounter, D64.9 - Anemia, unspecified Rheumatoid Factor 01/29/24 R20.2 - Paresthesia of skin, M79.601 - Pain in right arm, M79.602 - Pain in left arm, R25.2 - Cramp and spasm, E63.9 - Nutritional deficiency, unspecified, T73.0XXA - Starvation, initial encounter, D64.9 - Anemia, unspecified Magnesium 01/29/24 R20.2 - Paresthesia of skin, M79.601 - Pain in right arm, M79.602 - Pain in left arm, R25.2 - Cramp and spasm, E63.9 - Nutritional deficiency, unspecified, T73.0XXA - Starvation, initial encounter, D64.9 - Anemia, unspecified Vitamin A 01/29/24 R20.2 - Paresthesia of skin, M79.601 - Pain in right arm, M79.602 - Pain in left arm, R25.2 - Cramp and spasm, E63.9 - Nutritional deficiency, unspecified, T73.0XXA - Starvation, initial encounter, D64.9 - Anemia, unspecified Vitamin B2 (Riboflavin) 01/29/24 R20.2 - Paresthesia of skin, M79.601 - Pain in right arm, M79.602 - Pain in left arm, R25.2 - Cramp and spasm, E63.9 - Nutritional deficiency, unspecified, T73.0XXA - Starvation, initial encounter, D64.9 - Anemia, unspecified Vitamin D 25-OH (D2 and D3) 01/29/24 R20.2 - Paresthesia of skin, M79.601 - Pain in right arm, M79.602 - Pain in left arm, R25.2 - Cramp and spasm, E63.9 - Nutritional deficiency, unspecified, T73.0XXA - Starvation, initial encounter, D64.9 - Anemia, unspecified Vitamin K1 01/31/24 R20.2 - Paresthesia of skin, M79.601 - Pain in right arm, M79.602 - Pain in left arm, R25.2 - Cramp and spasm, E63.9 - Nutritional deficiency, unspecified, T73.0XXA - Starvation, initial encounter, D64.9 - Anemia, unspecified Copper, serum 01/29/24 R25.2 - Cramp and spasm, R20.2 - Paresthesia of skin, M79.601 - Pain in right arm, M79.602 - Pain in left arm, R25.1 - Tremor, unspecified Ceruloplasmin 01/29/24 R25.2 - Cramp and spasm, R20.2 - Paresthesia of skin, M79.601 - Pain in right arm, M79.602 - Pain in left arm, R25.1 - Tremor, unspecified PT Evaluation and Treatment 01/28/24 G56.23 - Lesion of ulnar nerve, bilateral upper limbs, R25.1 - Tremor, unspecified, R25.2 - Cramp and spasm, R20.2 - Paresthesia of skin, M79.601 - Pain in right arm, M79.602 - Pain in left arm Medications: New gabapentin 100 - 300 mg (1 - 3 x 100 mg) PO BEDTIME 90 caps 3RF 30 days Coding Level of Care Code New Pt Level 4 (11648) Diagnoses Paresthesia and pain of both upper extremities R20.2; M79.601; M79.602 Muscle cramps R25.2 Tremor R25.1 Ulnar neuropathy of both upper extremities G56.23
[2024-01-28 10:00] VITALS: BP 117/78; PULSE 74; O2SAT 98; BMI 36.3
== END 2024-01-28 11:21 | disposition home or self-care (01) ==
PROVIDERS: PCP Internal Medicine; Visit Provider Nurse Practitioner Family
DX: R20.2 Paresthesia of skin (principal); M79.601 Pain in right arm; M79.602 Pain in left arm; R25.2 Cramp and spasm; R25.1 Tremor, unspecified; G56.23 Lesion of ulnar nerve, bilateral upper limbs
CPT/HCPCS: 99204

== ENCOUNTER → 2024-01-28 09:53 | Outpatient (BNVA) | payer OTHER, SELFPAY | PROVIDERS: PCP Internal Medicine; Visit Provider Nurse Practitioner Family | DX: M79.601 Pain in right arm (principal); M79.602 Pain in left arm; G56.23 Lesion of ulnar nerve, bilateral upper limbs; R20.2 Paresthesia of skin; R25.2 Cramp and spasm; R25.1 Tremor, unspecified | CPT/HCPCS: 99202 ==

== ENCOUNTER 2024-01-29 12:04 | Outpatient (REF) | payer OTHER, SELFPAY ==
[2024-01-29 13:53] LABS: MANUAL DIFF FLAG NO
[2024-01-29 14:01] LABS: Basophils Percent Auto 0.2 % (0-2); Eosinophils Absolute Auto 0.1 X10*3/uL (0.0-0.4); Eosinophils Percent Auto 1.2 % (0-4); Hemoglobin 9.9 g/dl (12.0-16.0); Lymphocytes Absolute Auto 1.7 X10*3/uL (1.2-4.9); Lymphocytes Percent Auto 39.9 % (20-40); Mean Corpuscular Hemoglobin 23.2 pg (27.0-33.0); Mean Corpuscular Volume 77.5 fL (80.0-98.0); Mean Platelet Volume 11.9 fL (9.4-12.3); Monocytes Absolute Auto 0.3 X10*3/uL (0.1-1.2); Monocytes Percent Auto 6.6 % (2-11); Neutrophils Absolute Auto 2.2 x10*3/uL (2.0-8.3); Neutrophils Percent Auto 52.1 % (45-73); Platelet Count 231 X10*3/uL (160-400); Red Blood Count 4.26 X10*6/uL (4.20-5.50); Red Cell Distribution Width 15.4 % (11.0-16.0); White Blood Count 4.2 X10*3/uL (4.8-10.8)
[2024-01-29 14:11] LABS: Estimated Average Glucose 108 mg/dL; Hemoglobin A1c % 5.4 % (<6.0)
[2024-01-29 14:30] LABS: Alanine Aminotransferase 11 U/L (0-31); Albumin Level 3.9 g/dL (3.5-5.0); Alkaline Phosphatase 55 U/L (39-117); Anion Gap 10 (12-20); Aspartate Amino Transferase 16 U/L (5-31); Bilirubin Total 0.3 mg/dL (0.0-1.0); Blood Urea Nitrogen 8 mg/dL (9-16); Calcium 8.8 mg/dL (8.4-10.2); Carbon Dioxide 25 mmol/L (22-29); Chloride 110 mmol/L (96-108); Estimated Glomerular Filt Rate > 60; Glucose Random 87 mg/dL (60-115); Iron 31 mcg/dL (30-160); Percent Iron Saturation 8 % (15-50); Sodium 141 mmol/L (135-145); Total Iron Binding Capacity 408 mcg/dL (228-428); Total Protein 7.1 g/dL (6.5-8.0); Unsaturated Iron Binding 377 ug/dL
[2024-01-29 14:32] LABS: Rheumatoid Factor < 13.0 IU/mL (<15.0)
[2024-01-29 14:33] LABS: Ferritin 3 ng/mL (10-122); TSH reflex Free T4 0.98 uIU/mL (0.32-4.0)
[2024-01-29 14:56] LABS: Folate 12.6 ng/mL (> or = 4.0)
[2024-01-29 15:16] LABS: Erythrocyte Sedimentation Rate 23 MM/HR (0-20)
[2024-01-30 02:11] LABS: Vitamin B12 553 pg/mL (200-900)
[2024-01-31 09:03] LABS: CRP High Sensitivity <0.3 mg/L; Ceruloplasmin 33 mg/dL (18-53)
[2024-01-31 14:59] LABS: Anti Nuclear Antibody Screen NEGATIVE (NEGATIVE)
[2024-02-02 05:39] LABS: Copper, serum 152 mcg/dL (70-175); Zinc 58 mcg/dL (60-130)
[2024-02-02 10:37] LABS: Methylmalonic Acid 92 nmol/L (87-318)
[2024-02-02 13:48] LABS: Vitamin A 31 mcg/dL (38-98)
[2024-02-03 13:47] LABS: Vitamin D 25-OH, D2 <4 ng/mL; Vitamin D 25-OH, D3 25 ng/mL; Vitamin D 25-OH, Total 25 ng/mL (30-100)
[2024-02-03 14:58] LABS: Vitamin B6 5.4 ng/mL (2.1-21.7)
[2024-02-04 15:54] LABS: Vitamin B1 13 nmol/L (8-30)
[2024-02-04 16:25] LABS: Vitamin B2 (Riboflavin) 39.6 nmol/L (6.2-39.0)
[2024-02-05 01:09] LABS: Nicotinamide 21 ng/mL; Vit B3 - Nicotinic Acid <20 ng/mL
== END 2024-01-29 12:05 | disposition home or self-care (01) ==
LOC: HO.HMGCLDS 12:04
PROVIDERS: PCP Internal Medicine; Visit Provider Nurse Practitioner Family
DX: R20.2 Paresthesia of skin (principal); M79.601 Pain in right arm; M79.602 Pain in left arm; R25.2 Cramp and spasm; E63.9 Nutritional deficiency, unspecified; D64.9 Anemia, unspecified; R25.1 Tremor, unspecified; T73.0XXA Starvation, initial encounter; X58.XXXA Exposure to other specified factors, initial encounter; Y93.9 Activity, unspecified; Y92.9 Unspecified place or not applicable; Y99.9 Unspecified external cause status
CPT/HCPCS: 36415; 80053; 82306; 82390; 82525; 82550; 82607; 82728; 82746; 83036; 83540; 83735; 83921; 84207; 84252; 84425; 84443; 84590; 84591; 84630; 85025; 85652; 86038; 86141; 86431

== ENCOUNTER 2024-01-31 07:46 | Outpatient (REF) | payer OTHER, SELFPAY ==
[2024-02-01 17:47] LABS: Homocysteine 9.2 umol/L (<10.4)
[2024-02-03 05:03] LABS: Alpha-Tocopherol 11.1 mg/L (5.7-19.9)
[2024-02-04 00:04] LABS: Vitamin C 1.1 mg/dL (0.3-2.7)
[2024-02-04 18:34] LABS: Vitamin B5 (Pantothenic Acid) <40 ng/mL (<275)
[2024-02-05 18:48] LABS: Vitamin K1 251 pg/mL (130-1500)
== END 2024-01-31 07:47 | disposition home or self-care (01) ==
LOC: HO.LAB 07:46
PROVIDERS: PCP Internal Medicine; Visit Provider Nurse Practitioner Family
DX: R20.2 Paresthesia of skin (principal); M79.601 Pain in right arm; M79.602 Pain in left arm; R25.2 Cramp and spasm; E63.9 Nutritional deficiency, unspecified; T73.0XXA Starvation, initial encounter; D64.9 Anemia, unspecified
CPT/HCPCS: 36415; 82180; 83090; 84446; 84591; 84597

== ENCOUNTER 2024-02-10 09:21 | Outpatient (AMB) | payer OTHER, SELFPAY ==
[2024-02-10 09:22] VITALS: BP 110/68; PULSE 75; TEMP 36.4; O2SAT 99; BMI 37.4
--- NOTE | 2024-02-10 09:22 | MHC.OFFWIV ---
Intake Vital Signs 02/10/24 09:22 Height 5 ft 1 in Weight 198 lb BMI 37.4 BP 110/68 Blood Pressure Location Lt brachial Position Sitting Pulse 75 Pulse Source Pulse Oximeter Temp 97.6 F Temp Source Temporal Artery Scan Pulse Oximetry (%) 99 Oxygen Delivery Method Room Air Intake Visit Reasons: EP rt neck pain Intake Note: pt is here today for neck pain started 1 week ago Patient Tobacco Use Status: Never used Tobacco Allergies No Known Allergies Allergy (Verified 02/10/24 09:26) Do you need a note to return to daycare/school/sports/work: Yes HPI HPI Comments History of Present Illness Details 33-year-old female complaining of bilateral paraspinous muscular pain through the trapezius and rhomboids. The patient denies any trauma or injury to the area denies any history of MVA or heavy lifting. 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 She denies any recent URI. Denies any paresthesias numbness or tingling in the upper extremities. The patient states she has a past medical history of fibromyalgia and is under the care of rheumatology [facility] Medical History (Updated 02/10/24 @ 11:59 by ADELAIDE Whitfield) Morbid obesity delivery delivered Asthma Surgical History (Updated 01/28/24 @ 10:04 by SAMM Bravo) H/O section H/O tubal ligation Hx of cholecystectomy Family History (Updated 01/28/24 @ 10:05 by SAMM Bravo) Father HTN (hypertension) Diabetes Mother HTN (hypertension) Social History (Updated 01/28/24 @ 10:06 by SAMM Bravo) Alcohol intake: never Patient Tobacco Use Status: Never used Tobacco Review of Systems Const All systems reviewed & are unremarkable except as noted in HPI and below Physical Exam Vital Signs: Last Vital Signs Temp 97.6 F 02/10/24 09:22 Pulse 75 02/10/24 09:22 BP 110/68 02/10/24 09:22 Pulse Ox 99 02/10/24 09:22 Oxygen Delivery Method Room Air 02/10/24 09:22 BMI result Body Mass Index 37.4 Back/Spine/Pelvis Cervical Spine: loss of normal cervical lordosis, cervical muscular tenderness, pain with cervical ROM, cervical spasm, Cervical spine tenderness and cervical ROM abnormal Assessment & Plan Assessment & Plan (1) Cervical strain, acute: Code(s): S16.1XXA - Strain of muscle, fascia and tendon at neck level, initial encounter Plan: The patient was given a refill of her Flexeril that she is used in the past for her low back pain. 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 I discussed the importance of light exercise and range of motion. Plan See plan Orders: Orders XR cervical spine 2V Today M54.2 - Cervicalgia Medications: New cyclobenzaprine 5 mg PO Q12H 10 tabs 0RF Coding Level of Care Code Est Pt Level 3 (58773) Diagnoses Cervical strain, acute S16.1XXA
== END 2024-02-10 11:20 | disposition home or self-care (01) ==
PROVIDERS: PCP Internal Medicine; Visit Provider Physician Assistant Medical
DX: S16.1XXA Strain of muscle, fascia and tendon at neck level, initial encounter (principal)
CPT/HCPCS: 99213

== ENCOUNTER 2024-02-10 10:15 | Outpatient (REF) | payer OTHER, SELFPAY ==
--- NOTE | ~2024-02-10 | XR_ITS ---
EXAMINATION: XR CERVICAL SPINE CLINICAL INFORMATION: Cervicalgia. COMPARISON: None available. TECHNIQUE: 2 views of the cervical spine were obtained. FINDINGS: The cervical spine is imaged through the C7 vertebral body. Relative straightening of the cervical lordosis. Vertebral body heights and intervertebral disc spaces are maintained. Prevertebral soft tissues are within normal limits. XR/XR cervical spine 2V IMPRESSION: No acute abnormality.
== END 2024-02-10 10:16 | disposition home or self-care (01) ==
LOC: HO.HMGCX 10:15
PROVIDERS: PCP Internal Medicine; Visit Provider Physician Assistant Medical
DX: M54.2 Cervicalgia (principal)
CPT/HCPCS: 72040

== ENCOUNTER 2024-04-21 23:32 | Emergency (ER) | payer OTHER, SELFPAY ==
--- NOTE | ~2024-04-21 | US_ITS ---
EXAMINATION: US PELVIS CLINICAL INFORMATION: Vaginal bleeding and abdominal pain COMPARISON: None available. TECHNIQUE: Ultrasound of the pelvis is performed using transabdominal technique along with Doppler. Transvaginal imaging is performed due to inadequate visualization transabdominally. Patient declined transvaginal examination. FINDINGS: Uterus: The uterus is anteverted and measures 11.3 x 4.4 x 5.6 cm. The linear endometrial thickness is 0.3 mm. The uterus is smooth in contour and has normal myometrial echogenicity. No visible fibroid. Adnexa: Both ovaries are visualized. There is normal color flow to the adnexa. There is no ovarian torsion. There is no pelvic ascites or fluid collection. Right ovary measures 3.8 x 2.0 x 1.7 cm. The volume measured 6.8 mL Left ovary measures 2.2 x 1.4 x 2.4 cm. The volume measured 3.9 mL US/US pelvic complete IMPRESSION: Normal transabdominal pelvic ultrasound
--- NOTE | ~2024-04-21 | US_ITS ---
EXAMINATION: US PELVIS CLINICAL INFORMATION: Vaginal bleeding and abdominal pain COMPARISON: None available. TECHNIQUE: Ultrasound of the pelvis is performed using transabdominal technique along with Doppler. Transvaginal imaging is performed due to inadequate visualization transabdominally. Patient declined transvaginal examination. FINDINGS: Uterus: The uterus is anteverted and measures 11.3 x 4.4 x 5.6 cm. The linear endometrial thickness is 0.3 mm. The uterus is smooth in contour and has normal myometrial echogenicity. No visible fibroid. Adnexa: Both ovaries are visualized. There is normal color flow to the adnexa. There is no ovarian torsion. There is no pelvic ascites or fluid collection. Right ovary measures 3.8 x 2.0 x 1.7 cm. The volume measured 6.8 mL Left ovary measures 2.2 x 1.4 x 2.4 cm. The volume measured 3.9 mL US/US pelvic ovarian doppler IMPRESSION: Normal transabdominal pelvic ultrasound
--- NOTE | ~2024-04-21 | CT_ITS ---
EXAMINATION: CT ABDOMEN AND PELVIS WITH CONTRAST CLINICAL INFORMATION: Abdomen pain, right lower quadrant worse COMPARISON: None available. TECHNIQUE: Multidetector volumetric images were obtained from the superior aspect of the liver through the pubic symphysis following administration 85 mL of Omnipaque 350 intravenous contrast. Sagittal and coronal reformatted images were obtained on the technologist's workstation. Oral contrast: No This CT examination was performed using dose optimization techniques as appropriate, variously including the following: *Automated exposure control *Adjustment of mA and/or kV according to patient size (this includes techniques or standardized protocols for targeted exams where dose is matched to indication/reason for exam; i.e. extremities or head) *Use of iterative reconstruction technique DLP: 702 mGy-cm FINDINGS: LUNG BASES: The visualized lung bases are unremarkable. LIVER, GALLBLADDER, AND BILIARY TREE: The liver is normal in size, shape, and attenuation. No focal hepatic lesion or biliary ductal dilatation is present. Status post cholecystectomy. PANCREAS: Unremarkable. SPLEEN: Unremarkable. ADRENAL GLANDS: Unremarkable. KIDNEYS AND URETERS: The kidneys are normal in size, shape, and attenuation. No hydronephrosis, hydroureter, or calculi seen. No perinephric stranding. BLADDER: Unremarkable. GASTROINTESTINAL TRACT: There are postsurgical changes in the stomach. There is no small bowel obstruction. The appendix is normal. No inflammatory changes in the bowel. ABDOMINAL WALL: Small fat-containing umbilical hernia. LYMPH NODES: Normal. VASCULAR: Unremarkable. PELVIC VISCERA: Unremarkable CT appearance of the uterus and adnexa. Some prominent periuterine varices. OSSEOUS STRUCTURES: Unremarkable. CT/CT abdomen pelvis w IV con IMPRESSION: 1. No acute abnormality to explain the patient's right lower quadrant pain. 2. Status post cholecystectomy. 3. Postsurgical changes in the stomach. 4. Small fat-containing umbilical hernia. Fleischner guidelines were followed.
--- NOTE | 2024-04-22 | ECG_ITS ---
Test Reason : CHEST PAIN Blood Pressure : / mmHG Vent. Rate : 065 BPM Atrial Rate : 065 BPM P-R Int : 200 ms QRS Dur : 084 ms QT Int : 384 ms P-R-T Axes : 047 055 033 degrees QTc Int : 399 ms Normal sinus rhythm Normal ECG When compared with ECG of 11-SEP-2021 10:08, No significant change was found Referred By: Elodia Medina Electronically Signed By:Manuel Smith
[2024-04-22 00:08] VITALS: BP 128/79; PULSE 62; RESP 16; TEMP 36.7; O2SAT 100; BMI 37.8
[2024-04-22 00:26] LABS: Basophils Percent Auto 0.1 % (0-2); Eosinophils Absolute Auto 0.1 X10*3/uL (0.0-0.4); Eosinophils Percent Auto 1.5 % (0-4); Hematocrit 32.9 % (37.0-47.0); Hemoglobin 10.7 g/dl (12.0-16.0); Imm Gran Abs Auto 0.01 X10*3/uL (0.00-0.03); Imm Gran Pct Auto 0.1 % (0.0-0.4); Lymphocytes Absolute Auto 3.2 X10*3/uL (1.2-4.9); Lymphocytes Percent Auto 47.4 % (20-40); MANUAL DIFF FLAG NO; Mean Corpuscular HGB Conc 32.5 g/dl (31.0-35.0); Mean Corpuscular Volume 82.9 fL (80.0-98.0); Mean Platelet Volume 10.5 fL (9.4-12.3); Monocytes Absolute Auto 0.3 X10*3/uL (0.1-1.2); Neutrophils Absolute Auto 3.1 x10*3/uL (2.0-8.3); Neutrophils Percent Auto 45.9 % (45-73); Platelet Count 170 X10*3/uL (160-400); Red Blood Count 3.97 X10*6/uL (4.20-5.50); Red Cell Distribution Width 19.6 % (11.0-16.0); White Blood Count 6.8 X10*3/uL (4.8-10.8)
[2024-04-22 00:51] LABS: Alanine Aminotransferase 10 U/L (0-31); Albumin Level 3.8 g/dL (3.5-5.0); Alkaline Phosphatase 52 U/L (39-117); Anion Gap 11 (12-20); Aspartate Amino Transferase 13 U/L (5-31); Bilirubin Total 0.1 mg/dL (0.0-1.0); Blood Urea Nitrogen 8 mg/dL (9-16); Calcium 9.3 mg/dL (8.4-10.2); Carbon Dioxide 26 mmol/L (22-29); Chloride 109 mmol/L (96-108); Estimated Glomerular Filt Rate > 60; Glucose Random 89 mg/dL (60-115); Potassium 3.9 mmol/L (3.3-5.1); Sodium 142 mmol/L (135-145); Total Protein 6.5 g/dL (6.5-8.0)
[2024-04-22 00:54] LABS: HCG Quantitative < 2 mIU/mL
[2024-04-22 02:56] VITALS: BP 138/83; PULSE 63; RESP 17; TEMP 36.6; O2SAT 95
[2024-04-22 05:30] VITALS: BP 132/74; PULSE 65; RESP 17; TEMP 36.6; O2SAT 95
[2024-04-22 06:03] LABS: MANUAL DIFF FLAG NO
[2024-04-22 06:04] LABS: Basophils Percent Auto 0.2 % (0-2); Eosinophils Absolute Auto 0.1 X10*3/uL (0.0-0.4); Eosinophils Percent Auto 2.5 % (0-4); Hematocrit 32.3 % (37.0-47.0); Hemoglobin 10.6 g/dl (12.0-16.0); Imm Gran Abs Auto 0.01 X10*3/uL (0.00-0.03); Imm Gran Pct Auto 0.2 % (0.0-0.4); Lymphocytes Absolute Auto 2.6 X10*3/uL (1.2-4.9); Lymphocytes Percent Auto 48.9 % (20-40); Mean Corpuscular HGB Conc 32.8 g/dl (31.0-35.0); Mean Corpuscular Hemoglobin 27.2 pg (27.0-33.0); Mean Platelet Volume 10.4 fL (9.4-12.3); Monocytes Absolute Auto 0.3 X10*3/uL (0.1-1.2); Monocytes Percent Auto 5.8 % (2-11); Neutrophils Absolute Auto 2.2 x10*3/uL (2.0-8.3); Neutrophils Percent Auto 42.4 % (45-73); Platelet Count 152 X10*3/uL (160-400); Red Blood Count 3.89 X10*6/uL (4.20-5.50); Red Cell Distribution Width 19.7 % (11.0-16.0); White Blood Count 5.2 X10*3/uL (4.8-10.8)
--- NOTE | 2024-04-22 06:59 | ED_ITS ---
HPI - Female Genitourinary General Chief complaint: Vaginal Bleeding Stated complaint: abdominal pain Time Seen by Provider: 04/22/24 06:36 Source: patient Mode of arrival: ambulatory Limitations: no limitations History of Present Illness ED Provider: Ariela STACK HPI Narrative: This is a 33 yo f hx of anemia, migraines, obesity, endometriosis, tubal ligation (2019) presenting w/ vaginal bleeding and lower abd discomfort X 2 days. LMP was March. Patient reprots that typically she has heavier periods however, the past few days seem to be heavier than usual. 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 When i ask if there is concerns for STDs her response is Hell No . Patient is followed y an OBGYN regularly. Also reporting hx of migraines has a migraine feels like her typical (no truama, vision changes, dizziness, weakness) coming on. Reports she gets a monthly injection for migranes. Denies fevers, chills, nausea, vomiting, cp, sob, dizziness, weakness. Related Data Home Medications ?Medication ?Instructions ?Recorded ?Confirmed cyclobenzaprine 10 mg tablet 10 mg PO BEDTIME 09/10/21 01/28/24 adalimumab 80 mg/0.8 mL mg subcut 01/28/24 01/28/24 subcutaneous pen kit (Humira(CF) Pen) galcanezumab-gnlm 120 mg/mL 120 mg subcut 01/28/24 01/28/24 subcutaneous pen injector (Emgality Pen) ibuprofen 200 mg tablet mg PO 01/28/24 01/28/24 rizatriptan 10 mg tablet mg PO 01/28/24 01/28/24 Previous Rx's ?Medication ?Instructions ?Recorded mecobalamin (vitamin B12) 1,000 1,000 mcg sublingual DAILY #30 tabs 09/18/21 mcg disintegrating tablet,sublingual ondansetron HCl 4 mg tablet 4 mg PO Q6H PRN nausea and 10/07/21 (Zofran) vomiting #30 tabs gabapentin 100 mg capsule 100 - 300 mg (1 - 3 x 100 mg) PO 01/28/24 BEDTIME 30 days #90 caps cholecalciferol (vitamin D3) 1,250 1,250 mcg PO QWEEK 12 weeks #12 04/23/24 mcg (50,000 unit) capsule caps zinc sulfate 50 mg zinc (220 mg) 50 mg PO DAILY 30 days #30 caps 02/09/24 capsule cyclobenzaprine 5 mg tablet 5 mg PO Q12H #10 tabs 02/10/24 Allergies Allergy/AdvReac Type Severity Reaction Status Date / Time No Known Allergies Allergy Verified 04/22/24 00:09 Review of Systems 2 Review of Systems: Yes all other systems are reviewed and are negative [facility] Past Medical History Attestation statement: The following information was validated with the patient. Source: old records reviewed and nursing notes reviewed Medical History Morbid obesity delivery delivered Asthma Surgical History H/O section H/O tubal ligation Hx of cholecystectomy Family History Family History Father HTN (hypertension) Diabetes Mother HTN (hypertension) Social History Social History Alcohol intake: never Patient Tobacco Use Status: Never used Tobacco Advance Directives: No Advance Directives Information Provided: Yes Patient : No Physical Exam 2 Vital Signs: Vital Signs: Last Vital Signs Temp 97.8 F 04/22/24 05:30 Pulse 78 04/22/24 08:36 Resp 16 04/22/24 08:36 BP 114/59 L 04/22/24 08:36 Pulse Ox 100 04/22/24 08:36 O2 Del Method Room Air 04/22/24 05:30 BMI result Body Mass Index 37.8 vss Appearance: Alert.? Oriented X3.? No acute distress.? Head: Normocephalic, atraumatic, no step-offs or deformities Eyes: Pupils equal, round and reactive to light.? CVS: Normal heart rate and rhythm.? Pulses normal.? Respiratory: No respiratory distress.? Breath sounds normal.? Abdomen: Soft and mild tenderness to lower abdomen throughout RLQ >LLQ.?Negative rosving, murphys Skin: Skin warm and dry.? Normal skin color.? Normal skin turgor.? Extremities: No lower extremity edema.? No calf ttp. 5/5 strength to bilateral upper and lower extremities Neuro: Oriented X 3.? No motor deficit.? No sensory deficit. CN 2-12 intact Sensative exam: refused Course Reevaluation(s) Reevaluation #1: CBC with a normocytic anemia. Chemistry no acute findings requiring intervention. Negative beta hCG. Time: 07:11 Reevaluation #2: Patient reported chest pain after morphine, EKG was done nonischemic. Troponin negative. PERC negative. CT abdomen pelvis no acute abnormality to explain patient's right lower quadrant pain status post cholecystectomy postsurgical changes in the stomach small fat containing umbilical hernia. Pelvic ultrasound normal. Normal flow bilaterally. No evidence of torsion. Patient feeling better. Will discharge her home. This is likely menorrhagia as she is on her normal menses. Strict return precautions reviewed. Educated patient on diagnosis and treatment plan, answered all question, patient verbalizes understanding. At this time patient will be discharged home, advised to return with new or worsening symptoms. Educated on worrisome signs and symptoms and when to return. At this time I feel comfortable discharge home. Time: 08:49 Medications Administered Discontinued Medications Generic Name Dose Route Start Last Admin Trade Name Freq PRN Reason Stop Dose Admin Iohexol 100 ml 04/22/24 08:01 04/22/24 08:01 Iohexol 350 Mg/Ml 100 Ml Infus..Btl IV 04/22/24 08:02 85 ml ONCE ONE Administration Morphine Sulfate 15 mg 04/22/24 06:59 04/22/24 07:13 Morphine Sulfate Immed Release 15 Mg Tablet PO 04/22/24 07:00 15 mg ONCE ONE Administration Medical Decision Making Medical Decision Making [facility] Narrative: 705 33 yo f presents w/ lower abd discomfort and vaginal bleeding X 2 days currently on her menses however PE Soft and mild tenderness to lower abdomen throughout RLQ >LLQ.?Negative rosving, murphys. Neuro nonfocal NIHSS-0 History and physical exam concerning for menorrhagia. Unlikely ectopic/threatened , torsion. Patient denies concerns for STDs or STIs. Will rule out urinary tract infection. Less likely appendicitis, acute abdomen, diverticulitis, obstruction, pancreatitis. Migraine likely typical migraine. Unlikely intracranial hemorrhage, stroke, posterior stroke Plan labs, imaging, urine Differential Diagnosis Differential Diagnoses: The differential diagnosis associated with the presentation includes History and physical exam concerning for menorrhagia. Unlikely ectopic/threatened , torsion. Patient denies concerns for STDs or STIs. Will rule out urinary tract infection. Less likely appendicitis, acute abdomen, diverticulitis, obstruction, pancreatitis. Migraine likely typical migraine. Unlikely intracranial hemorrhage, stroke, posterior stroke Admission/Observation Consideration of admission/observation: Escalation of care including admission/observation considered Unlikely Lab Data MDM Lab Attestation statement: I reviewed the patient's lab results. 04/22/24 07:26 04/22/24 00:20 Labs: Lab Results 04/22/24 04/22/24 04/22/24 Range/Units 00:20 05:59 07:26 WBC 6.8 5.2 5.1 (4.8-10.8) X10*3/uL RBC 3.97 L 3.89 L 3.87 L (4.20-5.50) X10*6/uL Hgb 10.7 L 10.6 L 10.5 L (12.0-16.0) g/dl Hct 32.9 L 32.3 L 32.1 L (37.0-47.0) % MCV 82.9 83.0 82.9 (80.0-98.0) fL MCH 27.0 27.2 27.1 (27.0-33.0) pg MCHC 32.5 32.8 32.7 (31.0-35.0) g/dl RDW 19.6 H 19.7 H 19.7 H (11.0-16.0) % Plt Count 170 D 152 L 157 L (160-400) X10*3/uL MPV 10.5 10.4 10.6 (9.4-12.3) fL Immature Gran % (Auto) 0.1 0.2 0.2 (0.0-0.4) % Neut % (Auto) 45.9 42.4 L 44.7 L (45-73) % Lymph % (Auto) 47.4 H 48.9 H 48.0 H (20-40) % [place] % (Auto) 5.0 5.8 5.5 (2-11) % Eos % (Auto) 1.5 2.5 1.6 (0-4) % Baso % (Auto) 0.1 0.2 0.0 (0-2) % Lymph # (Auto) 3.2 2.6 2.5 (1.2-4.9) X10*3/uL [place] # (Auto) 0.3 0.3 0.3 (0.1-1.2) X10*3/uL Eos # (Auto) 0.1 0.1 0.1 (0.0-0.4) X10*3/uL Baso # (Auto) 0.0 0.0 0.0 (0.0-0.2) X10*3/uL Abs Immat Gran (auto) 0.01 0.01 0.01 (0.00-0.03) X10*3/uL Absolute Neuts (auto) 3.1 2.2 2.3 (2.0-8.3) x10*3/uL Absolute Nucleated RBC 0.000 0.000 0.000 (0.0-0.012) X10*3/uL Nucleated RBC % (auto) 0.0 0.0 0.0 (0.0-0.2) /100WBC Sodium 142 (135-145) mmol/L Potassium 3.9 (3.3-5.1) mmol/L Chloride 109 H (96-108) mmol/L Carbon Dioxide 26 (22-29) mmol/L Anion Gap 11 L (12-20) BUN 8 L (9-16) mg/dL Creatinine 0.76 (0.5-1.4) mg/dL Estim Creat Clear Calc 110.0 Estimated GFR > 60 Random Glucose 89 (60-115) mg/dL Calcium 9.3 (8.4-10.2) mg/dL Total Bilirubin 0.1 (0.0-1.0) mg/dL AST 13 (5-31) U/L ALT 10 (0-31) U/L Alkaline Phosphatase 52 (39-117) U/L Troponin I High Sens < 2.7 (<3.5-17.0) ng/L Total Protein 6.5 (6.5-8.0) g/dL Albumin 3.8 (3.5-5.0) g/dL Beta HCG, Quant < 2 mIU/mL Urine Color Urine Appearance Urine pH (5.0-9.0) Ur Specific [place] (1.005-1.025) Urine Protein (Neg-Trace) mg/dL Urine Glucose (UA) (Negative) mg/dL Urine Ketones (Negative) mg/dL Urine Blood (Negative) Urine Nitrite (Negative) Ur Leukocyte Esterase (Negative) Urine RBC (0-2) /HPF Urine WBC (0-5) /HPF Ur Squamous Epith Cells (0-2) /HPF Urine Bacteria (None Seen) Hyaline Casts (0-2) /LPF Urine Test (NEGATIVE) 04/22/24 Range/Units 07:46 WBC (4.8-10.8) X10*3/uL RBC (4.20-5.50) X10*6/uL Hgb (12.0-16.0) g/dl Hct (37.0-47.0) % MCV (80.0-98.0) fL MCH (27.0-33.0) pg MCHC (31.0-35.0) g/dl RDW (11.0-16.0) % Plt Count (160-400) X10*3/uL MPV (9.4-12.3) fL Immature Gran % (Auto) (0.0-0.4) % Neut % (Auto) (45-73) % Lymph % (Auto) (20-40) % [place] % (Auto) (2-11) % Eos % (Auto) (0-4) % Baso % (Auto) (0-2) % Lymph # (Auto) (1.2-4.9) X10*3/uL [place] # (Auto) (0.1-1.2) X10*3/uL Eos # (Auto) (0.0-0.4) X10*3/uL Baso # (Auto) (0.0-0.2) X10*3/uL Abs Immat Gran (auto) (0.00-0.03) X10*3/uL Absolute Neuts (auto) (2.0-8.3) x10*3/uL Absolute Nucleated RBC (0.0-0.012) X10*3/uL Nucleated RBC % (auto) (0.0-0.2) /100WBC Sodium (135-145) mmol/L Potassium (3.3-5.1) mmol/L Chloride (96-108) mmol/L Carbon Dioxide (22-29) mmol/L Anion Gap (12-20) BUN (9-16) mg/dL Creatinine (0.5-1.4) mg/dL Estim Creat Clear Calc Estimated GFR Random Glucose (60-115) mg/dL Calcium (8.4-10.2) mg/dL Total Bilirubin (0.0-1.0) mg/dL AST (5-31) U/L ALT (0-31) U/L Alkaline Phosphatase (39-117) U/L Troponin I High Sens (<3.5-17.0) ng/L Total Protein (6.5-8.0) g/dL Albumin (3.5-5.0) g/dL Beta HCG, Quant mIU/mL Urine Color Yellow Urine Appearance Clear Urine pH 6.5 (5.0-9.0) Ur Specific [place] 1.010 (1.005-1.025) Urine Protein Negative (Neg-Trace) mg/dL Urine Glucose (UA) Negative (Negative) mg/dL Urine Ketones Negative (Negative) mg/dL Urine Blood Negative (Negative) Urine Nitrite Negative (Negative) Ur Leukocyte Esterase Negative (Negative) Urine RBC 0-2 (0-2) /HPF Urine WBC 0-5 (0-5) /HPF Ur Squamous Epith Cells 0-2 (0-2) /HPF Urine Bacteria None Seen (None Seen) Hyaline Casts 0-2 (0-2) /LPF Urine Test NEGATIVE (NEGATIVE) Independent Interpretation I performed an independent interpretation of an: Ultrasound (US/US pelvic complete IMPRESSION: Normal transabdominal pelvic ultrasound) and CT Scan (CT/CT abdomen pelvis w IV con IMPRESSION: 1. No acute abnormality to explain the patient's right lower quadrant pain. 2. Status post cholecystectomy. 3. Postsurgical changes in the stomach. 4. Small fat-containing umbilical hernia. Fleischner guidelines were followed.) Radiology Impression Discussion of test interpretation with radiology: I have reviewed the radiologist's reading. External Record Review External record reviewed: Inpatient record, Office record, Outpatient record, Prior outpatient labs, Prior outpatient radiology, Primary care record and Outside ED record Tests considered The following testing was considered but not selected: NIHSS-0 normal neuro no indication for head scan Chronic Conditions Patient?s care impacted by: Other (tremor, anemia, obesity, binge eating ) Critical Care Time Critical Care Time Critical Care Time: Yes Total Critical Care Time: 35 Attestation: I attest to this time spent taking care of the patient, obtaining history, physical, reviewing labs, imaging, re-evaluating patient after pain medicine, trending lab work Discharge Plan Discharge Clinical Impression: Abdominal pain, Menorrhagia Patient Disposition: Home, Self-Care Instructions: Abdominal Pain (ED), Menorrhagia (ED) Additional Instructions: Take your medications as prescribed. If you were prescribed antibiotics today, it is important that you take your medication to their entirety, do not skip any doses, do not finish them early. Follow-up with your primary care provider this week. Return to the emergency department with new or worsening symptoms. Such as fevers, chills, chest pain, shortness of breath, nausea, vomiting, dizziness, headache, vision changes, lethargy In case of emergency call 911 Return if your bleeding through more than [address]/CT abdomen pelvis w IV con IMPRESSION: 1. No acute abnormality to explain the patient's right lower quadrant pain. 2. Status post cholecystectomy. 3. Postsurgical changes in the stomach. 4. Small fat-containing umbilical hernia. Fleischner guidelines were followed. US/US pelvic complete IMPRESSION: Normal transabdominal pelvic ultrasound Prescriptions: No Action mecobalamin (vitamin B12) 1,000 mcg tablet,disintegrating 1,000 mcg sublingual DAILY Qty: 30 2RF Rx Instructions: place tablet under tongue and allow to dissolve for at least30 secs before swallowing cholecalciferol (vitamin D3) 1,250 mcg (50,000 unit) capsule 1,250 mcg PO QWEEK 84 Days Qty: 12 0RF zinc sulfate 50 mg zinc (220 mg) capsule 50 mg PO DAILY 30 Days Qty: 30 3RF cyclobenzaprine 5 mg tablet 5 mg PO Q12H Qty: 10 0RF ondansetron HCl [Zofran] 4 mg tablet 4 mg PO Q6H PRN (Reason: nausea and vomiting) Qty: 30 2RF cyclobenzaprine 10 mg tablet 10 mg PO BEDTIME rizatriptan 10 mg tablet PO Emgality Pen 120 mg/mL pen injector 120 mg subcut Humira(CF) Pen 80 mg/0.8 mL pen injector kit subcut ibuprofen 200 mg tablet PO gabapentin 100 mg capsule 100 - 300 mg PO BEDTIME 30 Days Qty: 90 3RF Referrals: Coral Glez MD [Primary Care Provider] - 2 days Stand Alone Forms: Work/School Release Print Language: Welsh
[2024-04-22] MEDS: Morphine Sulfate Immed Release 15 MG TABLET PO (07:13)
[2024-04-22 07:29] LABS: MANUAL DIFF FLAG NO
[2024-04-22 07:32] LABS: Eosinophils Absolute Auto 0.1 X10*3/uL (0.0-0.4); Eosinophils Percent Auto 1.6 % (0-4); Hematocrit 32.1 % (37.0-47.0); Hemoglobin 10.5 g/dl (12.0-16.0); Imm Gran Abs Auto 0.01 X10*3/uL (0.00-0.03); Imm Gran Pct Auto 0.2 % (0.0-0.4); Lymphocytes Absolute Auto 2.5 X10*3/uL (1.2-4.9); Mean Corpuscular HGB Conc 32.7 g/dl (31.0-35.0); Mean Corpuscular Hemoglobin 27.1 pg (27.0-33.0); Mean Corpuscular Volume 82.9 fL (80.0-98.0); Mean Platelet Volume 10.6 fL (9.4-12.3); Monocytes Absolute Auto 0.3 X10*3/uL (0.1-1.2); Monocytes Percent Auto 5.5 % (2-11); Neutrophils Absolute Auto 2.3 x10*3/uL (2.0-8.3); Neutrophils Percent Auto 44.7 % (45-73); Platelet Count 157 X10*3/uL (160-400); Red Blood Count 3.87 X10*6/uL (4.20-5.50); Red Cell Distribution Width 19.7 % (11.0-16.0); White Blood Count 5.1 X10*3/uL (4.8-10.8)
[2024-04-22 08:01] LABS: Appearance Urine Clear; Color Urine Yellow; Glucose Urine UA Negative (Negative); Leukocyte Esterase Urine Negative (Negative); Nitrite Urine Negative (Negative); PH 6.5 (5.0-9.0); Urine Blood Negative (Negative); Urine Ketones Negative (Negative); Urine Protein Negative (Neg-Trace)
[2024-04-22] MEDS: iohexoL 350 MG/ML 100 ML INFUS..BTL IV (08:01)
[2024-04-22 08:02] LABS: UPreg QC Valid YES; Urine Pregnancy NEGATIVE (NEGATIVE)
[2024-04-22 08:06] LABS: Bacteria Urine None Seen (None Seen); Hyaline Casts Urine 0-2 /LPF (0-2); RBC Urine 0-2 /HPF (0-2); Squamous Epithelial Cell Urine 0-2 /HPF (0-2); WBC Urine 0-5 /HPF (0-5)
[2024-04-22 08:36] VITALS: BP 114/59; PULSE 78; RESP 16; O2SAT 100
--- NOTE | 2024-04-22 09:55 | PC.NURSE ---
Pt stated while she was having the pelvic US she developed sudden rib and chest pain . Pt states that it Feels like gas pain'. PA notified. VSS, EKG ordered.
[2024-04-22 09:56] LABS: Troponin-I High Sensitivity < 2.7 ng/L (<3.5-17.0)
[2024-04-22 10:15] VITALS: BP 114/59; PULSE 78; RESP 16; TEMP 36.6; O2SAT 100
== END 2024-04-22 10:16 | disposition home or self-care (01) ==
PROVIDERS: Emergency Medicine; Physician Assistant; Emergency Provider Emergency Medicine; PCP Internal Medicine
DX: R10.30 Lower abdominal pain, unspecified (principal); N92.0 Excessive and frequent menstruation with regular cycle; R07.9 Chest pain, unspecified; K42.9 Umbilical hernia without obstruction or gangrene; D50.9 Iron deficiency anemia, unspecified; R25.1 Tremor, unspecified; Z90.49 Acquired absence of other specified parts of digestive tract
CPT/HCPCS: 36415; 74177; 76856; 80053; 81001; 81025; 84484; 84702; 85025; 93005; 93975; 99284; 99285; Q9967

== ENCOUNTER → 2024-04-22 08:53 | Outpatient (BNV) | payer OTHER, SELFPAY | PROVIDERS: Emergency Provider Emergency Medicine; PCP Internal Medicine; Visit Provider Internal Medicine Cardiovascular Disease | DX: R07.9 Chest pain, unspecified (principal) | CPT/HCPCS: 93010 ==

== ENCOUNTER 2024-05-01 07:29 | Outpatient (AMB) | payer OTHER, SELFPAY ==
--- NOTE | 2024-05-01 07:35 | A.OFFVIS_ITS ---
Intake Visit Reasons: Follow up Peripheral Neuropathy-CONF Intake Note: Patient presents for follow up neuropathy Allergies No Known Allergies Allergy (Verified 05/01/24 08:00) HPI Comments Details: 33-yr-old female presents for f/u visit. Denies significant medical changes. However she has had an increase in her migraine severity this past week- has had 2 ER visits in the past week- [facility] and then [facility]. At [facility]- was given a ? migraine cocktail which was helpful. She is having daily migraine, more severe despite using Emgality and Rizatriptan. She does note that she is in her last week of her Emgality in jection cycle. F/b the [facility] for the migraines. Note previously tried Amitriptyline- was ineffective for migraine and body pains. She has been noting increased body pains- PCP is referring her back to rheumatology. Was last seen in 2020. But is being referred to a new caustic strength inspector for her fibromyalgia. PCP increased the Gabapentin 300mg qhs. She continues to have burning sensation in the right 3rd/4th fingertips, now a/w redness (when just sitting or when taking showers). Can wake up with right arm soreness. The tingling is a/w her migraines. She has not done PT yet. Had planeed to go to [facility] on [address], [place]- but they needed the order. Labs were notable for anemia, low ferririn and vit D supplement She is f/b hematology. We started her on vit D supplement. BUE EMG/NCS at [facility]- per pt, showed a Patric mild ulnar neuropathy. XR c-spine- mild neuroforaminal narrowing at C3-C4. Has not had a LE EMG/NCS. [facility] Medical History Morbid obesity delivery delivered Asthma Surgical History H/O section H/O tubal ligation Hx of cholecystectomy Family History Father HTN (hypertension) Diabetes Mother HTN (hypertension) Social History Alcohol intake: never Patient Tobacco Use Status: Never used Tobacco Physical Exam Const General: cooperative and no acute distress Orientation/consciousness: patient oriented x3 Resp Effort & Inspection: normal respiratory effort and able to speak in complete sentences Neuro General: patient oriented x3 Cranial nerves: Yes CN's II-XII intact bilaterally Cognition (Neuro): normal cognition Psych Appearance: grossly normal Mental Status: mental status grossly normal Speech and movement: Normal speech and movement present Affect: normal affect Attitude: cooperative Assessment & Plan Assessment & Plan (1) Ulnar neuropathy of both upper extremities: Code(s): G56.23 - Lesion of ulnar nerve, bilateral upper limbs Category: Medical (2) Paresthesia and pain of both upper extremities: Code(s): R20.2 - Paresthesia of skin; M79.601 - Pain in right arm; M79.602 - Pain in left arm Category: Medical (3) Tremor: Code(s): R25.1 - Tremor, unspecified Category: Medical (4) Muscle cramps: Code(s): R25.2 - Cramp and spasm Category: Medical Plan Trial Nervive nerve relief supplement- full effect may take 6-8 weeks or longer.. Continue Gabapentin 300mg qhs Continue Vit D supplement. F/u w/ hematology as scheduled for tx of anemia. Start PT- we will send order over to [facility]- per pt request. Future considerations- ortho consult, c-spine MRI, BLE EMG/NCS. ? Pt is f/b the [facility] for migraine. ? f/u in 2-3 months or sooner prn. Coding Level of Care Code Est Pt Level 4 (56729) Diagnoses Ulnar neuropathy of both upper extremities G56.23 Paresthesia and pain of both upper extremities R20.2; M79.601; M79.602 Tremor R25.1 Muscle cramps R25.2
== END 2024-05-01 08:18 | disposition home or self-care (01) ==
PROVIDERS: PCP Internal Medicine; Visit Provider Nurse Practitioner Family
DX: G56.23 Lesion of ulnar nerve, bilateral upper limbs (principal); R20.2 Paresthesia of skin; M79.601 Pain in right arm; M79.602 Pain in left arm; R25.1 Tremor, unspecified; R25.2 Cramp and spasm
CPT/HCPCS: 99214

== ENCOUNTER → 2024-05-01 07:29 | Outpatient (BNVA) | payer OTHER, SELFPAY | PROVIDERS: PCP Internal Medicine; Visit Provider Nurse Practitioner Family | DX: G56.23 Lesion of ulnar nerve, bilateral upper limbs (principal); R20.2 Paresthesia of skin; M79.601 Pain in right arm; M79.602 Pain in left arm; R25.2 Cramp and spasm; R25.1 Tremor, unspecified | CPT/HCPCS: 99212 ==

== ENCOUNTER 2024-08-07 08:21 | Outpatient (AMB) | payer OTHER, MEDICAID, SELFPAY ==
--- NOTE | 2024-08-07 08:32 | AM.OFFWIN_ITS ---
Intake Vital Signs 08/07/24 08:33 Height 5 ft 1 in Weight 189 lb BMI 35.7 BP 110/70 Blood Pressure Location Rt brachial Position Sitting Pulse 87 Pulse Source Pulse Oximeter Temp 98.3 F Temp Source Oral Pulse Oximetry (%) 98 Oxygen Delivery Method Room Air Intake Visit Reasons: EP Sore throat, hard to swallow Intake Note: Patient here for sore throat, hard to swallow which has been present for about 1 week. Patient Tobacco Use Status: Never used Tobacco Allergies No Known Allergies Allergy (Verified 08/07/24 08:34) Do you need a note to return to daycare/school/sports/work: Yes HPI HPI Comments History of Present Illness Details Patient is a 33-year-old female complaining of a sore throat for 1 week. She also has an associated dry cough and chills but denies any fevers, shortness of breath, ear pain, sinus pain or head congestion. She states she had asthma the kid but she does not have it anymore and she does not own an inhaler. She tells me her son was also sick with a sore throat and he tested negative for strep and got better without any antibiotics. She tells me she is very susceptible to getting COVID and has had it multiple times but did not test for COVID at home recently. [facility] Medical History Morbid obesity delivery delivered Asthma Surgical History H/O section H/O tubal ligation Hx of cholecystectomy Family History Father HTN (hypertension) Diabetes Mother HTN (hypertension) Social History Alcohol intake: never Patient Tobacco Use Status: Never used Tobacco Review of Systems Const All systems reviewed & are unremarkable except as noted in HPI and below Physical Exam Vital Signs: Last Vital Signs Temp 98.3 F 08/07/24 08:33 Pulse 87 08/07/24 08:33 BP 110/70 08/07/24 08:33 Pulse Ox 98 08/07/24 08:33 Oxygen Delivery Method Room Air 08/07/24 08:33 BMI result Body Mass Index 35.7 Const General: cooperative, healthy appearing, comfortable and no acute distress Orientation/consciousness: patient oriented x3 Limitations: no limitations HEENT Head: Yes normal to inspection Ears: hearing grossly normal bilaterally, external ears normal and TM's normal bilaterally General nose exam: Normal external nose present, Normal nares present and No nasal discharge present Face and sinus: Yes normal facial exam and Yes sinuses nontender Mouth: Normal oral and palatal mucosa present and moist mucous membranes Throat: Yes tonsils normal, Yes uvula midline and Yes posterior oropharynx abnormal (Erythema) Eyes General: appearance normal, both eyes and all related structures Neck Neck: Yes normal visual inspection Resp Effort & Inspection: normal respiratory effort, able to speak in complete sentences, no respiratory distress, not tachypneic, no tripod positioning and no use of accessory muscles Auscultation: clear to auscultation bilaterally Cardio Rate: regular rate Rhythm: regular rhythm Heart sounds: normal S1 and S2 Skin General skin exam: no rashes or lesions noted Neuro General: patient oriented x3 Extrem General: Yes normal to inspection and Yes no clubbing, cyanosis or edema Assessment & Plan Assessment & Plan (1) URI (upper respiratory infection): Code(s): J06.9 - Acute upper respiratory infection, unspecified Qualifiers: URI type: unspecified URI Qualified Code(s): J06.9 - Acute upper respiratory infection, unspecified Plan: Vital signs are stable, patient well-appearing, lung sounds are clear. Rapid strep was negative in office, this does not look like mono as her throat was just a little bit red. Recommended using hot tea with honey, [id number] numbing sprays, hydration and rest. Likely viral, sent flu COVID and RSV testing. Educated patient that her son got better without antibiotics so that was likely viral and she likely has the same virus. Plan See above Orders: Orders SARS-CoV2/FLU/RSV Today J06.9 - Acute upper respiratory infection, unspecified Coding Level of Care Code New Pt Level 3 (53192) Diagnoses Upper respiratory tract infection, unspecified type J06.9 URI type: unspecified URI
[2024-08-07 08:33] VITALS: BP 110/70; PULSE 87; TEMP 36.8; O2SAT 98; BMI 35.7
== END 2024-08-07 08:51 | disposition home or self-care (01) ==
PROVIDERS: PCP Internal Medicine; Visit Provider Physician Assistant
DX: J06.9 Acute upper respiratory infection, unspecified (principal); Z13.9 Encounter for screening, unspecified

== ENCOUNTER 2024-08-07 08:21 | Outpatient (REF) | payer OTHER, MEDICAID, SELFPAY ==
[2024-08-07 11:04] LABS: Influenza A PCR NEGATIVE (Negative); Influenza B PCR NEGATIVE (Negative); Resp Syncy Virus RNA Qual PCR NEGATIVE (Negative); SARS COV2 PCR INHOUSE NEGATIVE (Negative)
== END 2024-08-07 08:22 | disposition home or self-care (01) ==
LOC: HO.LAB 08:21
PROVIDERS: PCP Internal Medicine; Visit Provider Physician Assistant
DX: J06.9 Acute upper respiratory infection, unspecified (principal)
CPT/HCPCS: 0241U; 87880

== ENCOUNTER 2024-10-10 12:12 | Outpatient (AMB) | payer OTHER, MEDICAID, SELFPAY ==
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
--- OUTSIDE RECORDS SUMMARY | 2024-10-10 12:14 | XMS_ITS | Continuity of Care Document ---
Author Organization [facility] Address [address] [place] [address] Phone Care Team Providers Care Managing Member Name Role Phone Xiomara Britton MD. Unavailable Unavailable Allergies, Adverse Reactions, Alerts Substance Reaction Status Criticality No Known Allergies Active No Inform ation Medications Medication Instructions Dosage Effective Dates (start - stop) Status Comments dexamethasone 6 mg tablet take 1.5 tablet by oral route every day x 5 - Active Ventolin HFA 90 mcg/actuation aerosol inhaler inhale 2 puff by inhalation route every 4 - 6 hours as needed 180 MCG - Active cyclobenzaprine 5 mg tablet take 1 tablet by oral route every day as needed for muscle spasms 5 MG - Active clotrimazole 1 % topical cream apply by topical route 2 times every day to the affected and surrounding areas of skin in the morning and evening 0.00 - Active naproxen 500 mg tablet take 1 tablet by oral route 2 times every day with food for back/neck pain 500 MG - Active Procedures Procedure Date OFFICE/OUTPATIENT VISIT, EST OFFICE/OUTPATIENT VISIT, EST OFFICE/OUTPATIENT VISIT, EST PSYCHIATRIC DIAGNOSTIC EVAL W/E&M RADHA E OFFICE/OUTPATIENT VISIT, EST OFFICE/OUTPATIENT VISIT, EST OFFICE/OUTPATIENT VISIT, EST OFFICE/OUTPATIENT VISIT, EST OFFICE/OUTPATIENT VISIT, EST OFFICE/OUTPATIENT VISIT, NEW Advance Directives Directive Yes / No Effective Date File Name No Information Encounters Encounter Description Practice Location Reason(s) For Visit Diagnoses Date Provider Providers Copied on Encounter [facility], [address] [facility] [address], [place] [phone] [facility] No Information 1 Reba Solano. [address], [id number] 00W[place], [id number], [place]. tel:[phone] [facility], [address] [place], [address], [place] [phone] [facility] No Information 1 Jeancarlos Grmies. [address] [facility], [id number] [place], [address], [place]. tel:[phone] [facility], [address] [place], [address], [place] [phone] [facility] Major depressive disorder, recurrent, moderate 0 Sun Hailey. [address] [place], [address], [place]. tel:[phone] OFFICE/OUTPA TIENT VISIT, [facility], [facility] [place], [address], [place] tel:[phone] [facility] dry skin (chief complaint)b ack pain (chief complaint) Body mass index (BMI) 38.0-38.9, adultChronic bilateral low back pain with left-sided sciaticaOther chronic painCervicalgiaRa sh 0 Sun Hailey. [address] [place], [address], [place]. tel:[phone] OFFICE/OUTPA TIENT VISIT, [facility], [address] [place], [address], [place] tel:[phone] [facility] back pain (chief complaint) Body mass index (BMI) 40.0-44.9, adultNeck muscle spasm 9 [facility]. [address] [facility] [place], [id number] 00[place], [address], [place]. tel:[phone] [place] [address], [place] tel:[phone] [facility] Iron deficiency 9 [facility]. [address] [facility] [place], [id number] 00[place], [address], [place]. tel:[phone] OFFICE/OUTPA TIENT VISIT, [facility], [address] [place], [place] [address], [address], [place] tel:[phone] [facility] Hair loss (chief complaint) Body mass index (BMI) 39.0-39.9, adultIrregular mensesHair loss 9 [facility]. [address] [facility], [id number] 00[place], [address], [place]. tel:[phone] [facility], [address] [place], [place] [address], [address], [place] tel:[phone] [facility] Post depressionPostpar edilberto depression 9 Jeancarlos Grimes. [address] [place] [address], [id number] 00[place], [address], [place]. tel:[phone] PSYCHIATRIC DIAGNOSTIC EVAL W/E&M SERVICE [address] [place], [address], [place] tel:[phone] [facility] Major depressive disorder, recurrent, moderateGeneraliz ed anxiety disorderPost-trau matic stress disorder, chronicPrimary insomnia 9 Hilton evans [address] [place] [address], [id number] 00[place], [address], [place]. tel:[phone] OFFICE/OUTPA TIENT VISIT, [facility], [facility] [place] [address], [place] tel:[phone] [facility] rash (chief complaint) Body mass index (BMI) 39.0-39.9, adultCandidal skin infection 9 Jeancarlos Grimes. [address] [place] [address], [id number] 00[place], [address], [place]. tel:[phone] OFFICE/OUTPA TIENT VISIT, [facility], [address] [place], [place] [address], [address], [place] tel:[phone] [facility] Work clearance (chief complaint) Body mass index (BMI) 40.0-44.9, adultImmunity status testing 8 [facility]. [facility], [id number] 00[place], [address], [place]. tel:[phone] OFFICE/OUTPA TIENT VISIT, [facility], [address] [place], [place] [address], [address], [place] tel:[phone] [facility] Muscle pain (chief complaint)S kin concerns (chief complaint) Body mass index (BMI) 39.0-39.9, adultChronic pain of right kneeRight thigh painHyperpigmenta tion of skin 8 [facility]. [facility] [place], [id number] 00[place], [address], [place]. tel:[phone] [address] [place], [address], [place] tel:[phone] [facility] Low thyroxine (T4) level [address] [place], [id number] [place], [address], [place]. tel:[phone] OFFICE/OUTPA TIENT VISIT, [facility], [facility] [place] [address], [place] [phone] [facility] depression (chief complaint)F ollow Up of back pain (chief complaint) Body mass index (BMI) 37.0-37.9, adultPost depressionAcute bilateral low back pain with bilateral sciaticaHair lossFatigue, unspecified typeMyalgia 8 [facility]. [address], [id number] [place], [address], [place]. tel:[phone] OFFICE/OUTPA TIENT VISIT, [facility], [facility] [place], [address], [place] [phone] [facility] back pain (chief complaint)H eadache (chief complaint) Obesity, unspecifiedMyalgi aMigraine without aura and without status migrainosus, not intractable 8 [facility]. [address], [id number] 00[place], [address], [place]. tel:[phone] OFFICE/OUTPA TIENT VISIT, [facility], [address] [place], [place] [address], [address], [place] [phone] [facility] Rash (chief complaint)E st care (chief complaint) Obesity, unspecifiedTinea corporisCervicalg ia 7 [facility] [address], [id number] Demetri [place]ERO [place], [id number], [place]. tel:[phone] Family History Family Member Type Diagnosis Age At Onset Problem (finding) Family history of Diabe issa mellitus Problem (finding) Family history of hyper tension Problem (finding) Family history of malignant neoplasm of breast in first degree relative Problem (finding) Family history of seizu re disorder Immunizations Vaccine Date Status Comments Td, preservative free, (7 yr s and older) administered Note: Immunet ; Sour ce: Other Registry pertussis vaccine administered Note: Immu net ; Source: Other Registry Payers Payer name Insurance type Covered constitution party ID Paulo martinez(s) [employer] CI [id number] Social History Type Description Quantity Date Captured Comments Alcohol Use Details Unknown Caffeine Use Details Unknown Tobacco Use Status No Information Smoking Status No Information Sex Female Sexual Orientation Straight or heterosexual Gender Identity Female Chief Complaint And Reason For Visit No Information Reason For Referral Reason For Referral No Information Plan Of Treatment Date Type Action Status Goal Lifestyle educat ion regarding diet completed Goal Lifestyle educat ion regarding diet completed Goal Lifestyle educat ion regarding diet completed Goal Lifestyle educat ion regarding diet completed Goal Lifestyle educat ion regarding diet completed Goal Lifestyle educat ion regarding diet completed Goal Lifestyle educat ion regarding diet completed Goal Lifestyle educat ion regarding diet completed Goal Lifestyle educat ion regarding diet completed Goal Lifestyle educat ion regarding diet completed Referral Ordered: XR LUMBAR SPINE 2 OR 3 VW ordered Referral Ordered: Referrals: Dermatology. Evaluate and treat Appointment date/timeframe: 08/04/2018 ordered Referral Ordered: X-RAY EXAM OF KNEE, 3 Bilateral ordered Referral Ordered: Referrals: Orthopedic Surgery. Evaluate and treat Appointment date/timeframe: 08/23/2018 ordered Referral Ordered: TSH, 3RD GENERATION ordered Referral Ordered: Psychiatry (related to Post depression) ordered Referral Referred To: Physical Therapy Ordered: Referrals: Physical Therapy. Evaluate and treat Appointment date/timeframe: 04/25/2018 ordered Referral Ordered: Referrals: Psychiatry. Evaluate and treat ordered Patient Education Neck: Exercises complet ed Patient Education Low Back Pain: Exercise s completed Future Order: Radiology Order XR LUMBAR SPINE 2 OR 3 VW ([id number]), Sent on: Sent Future Order: Lab Order FERRITIN ([id number]), Scheduled for: , Scheduled for: Sent Future Order: Lab Order CBC (INC LUDES DIFF/PLT) ([id number]), Sent on: Sent Future Order: Lab Order TSH, 3RD GENERATION ([id number]), Sent on: Sent Future Order: Lab Order T4, FREE ([id number]), Sent on: Sent Future Order: Lab Order MAGNESIU M ([id number]), Sent on: Sent Future Order: Lab Order VITAMIN D,25-OH,TOTAL,IA ([id number]), Sent on: Sent Future Order: Lab Order HEMOGLOB IN A1C ([id number]), Sent on: Sent Future Order: Lab Order COMPREHE NSIVE METABOLIC PANEL ([id number]), Sent on: Sent History Of Present Illness Encounter Date Complaint History Of Prese nt Illness dry skin C/o some dry ski n on the right shoulder area x few months, seems to be spreading. Maybe has some spots between breasts too. Occasionally gets red, itchy. Has tried OTC hydrocortisone cream without benefit. back pain Location of pain is lower back and neck. Pain is radiated to the left leg. The patient describes the pain as sharp and pulling. Context: since she had her son earlier this year. Symptoms are aggravated by daily activities. Symptoms are relieved by over the counter medication: ibuprofen. back pain (comments) Taking up t o 800 mg ibuprofen helps a little. Has gotten neck and back pain after the of each of her 4 kids but this has been the worst. Flexeril in the past has helped. She requested an xray of her back since she has had some trouble with it for some time I just don't want to miss anything. back pain Onset: 1 week ag o. Location of pain is neck. Pain is radiated to the R shoulder.The patient describes the pain as deep. Context: no injury. Symptoms are aggravated by daily activities and twisting.The patient denies relieving factors. Pertinent negatives include numbness and tingling in the arms. Additional information: Pt here with R-sided neck pain that started 1 week ago, upon waking. Has been taking Ibuprofen, which is not helping. Hair loss Pt notes increas ed hair loss over the past 3 months. She does have some scalp tenderness. She feels she has been pulling more hairs out. She did have a baby less than 1.5 years ago, and denies any increased hair loss in the first few months.She washes her hair every 2 daysDenies any unintentional weight loss. She has had some headaches with nausea and abdominal pain. Fatigue.LMP: end january with another cycle 02/15/19. She did take a home test which was negative. She has had negative initial tests in the past when . rash The patient pres ents for rash. Additional information: dry errythemic rash under bilateral breast x 2 weeks. Work clearance Pt here for empl oyment screening for [employer].PPD on 07/27/18 and read on 07/29/18 as negative, 0mm induration. She had this placed at work.Pt needs to also have titers for MMR and varicella. Muscle pain Onset: 2 weeks a go. It occurs intermittently. Location: bilateral thigh. The pain is aching. The pain is relieved by OTC medicines (ibuprofen). Associated symptoms include locking. Pertinent negatives include decreased mobility, joint instability and limping. Additional information: Pt reports muscle aches started right before her recent menses but unable to recall timeline. R knee has been locking at times. She notes that she was in the ER last night for irregular menses with pelvic pain and heavy bleeding - labs and u/s were fine. Pt notes pain at times separate from menses. Muscle pain (comments) Pain in R thigh is always accompanied by pain in her R knee. She notes she jammed her knee badly in the past. Skin concerns Pt has large por es on the inner bilateral thighs that she is concerned about. Has occurred for the past few months. She reports itching at times after shaving. Would like to be referred to dermatology.She has been using Thurston Butter to help decrease the chafing in between her thighs. She notes some discolored skin in that area too. Follow Up of back pain Location of pain is lower back. Pain is radiated to the left thigh and right thigh.The patient describes the pain as sharp. Symptoms are relieved by over the counter medication: naproxen sodium. Pertinent negatives include bladder incontinence, bladder retention, bowel incontinence, bowel retention, tingling in the arms, tingling in the legs and weakness. Additional information: Pt continues with low back pain. Reports radiation into the thighs. Has been taking Naproxen which helps, Flexeril makes her sleepy. depression This is an initi al visit. The patient reports functioning as somewhat difficult. The patient presents with depressed mood, difficulty falling asleep, diminished interest or pleasure, fatigue and loss of appetite but denies difficulty concentrating, difficulty staying asleep, excessive worry, feelings of guilt, restlessness or thoughts of or suicide. The patient's risk factors include recent childbirth. The depression is associated with weight gain. Additional information: Pt here for initial visit for possible post- depression. Her screening with her daughter showed score of 17 in February. On meds in the past - ? Zoloft. Pt reports hx of post- with her first daughter's . Pt doesn't want her partner to know about her depression. Willing to see therapist. Headache Location is fron markell left and frontal right. There is no radiation. Context: history of migraine. Associated symptoms include photophobia. Pertinent negatives include fever, nausea, phonophobia and vomiting. Additional information: Pt was on maintenance medication for her migraines in the past. She just made an appointment (February 2018) for her eyes and as she has noticed some changes in her vision. Wears glasses. back pain Onset: 1 week ag o. Location of pain is lower back and neck.The patient describes the pain as an ache.The patient denies relieving factors. Pertinent negatives include cold symptoms and fever. Additional information: Pt reporting all over muscle aches that just started today. Pt denies any new activities, new exercise. Sleeping ok. No change in appetite, fluids ok. Has been taking Ibuprofen and not alleviating. Rash The patient pres ents for Rash. This episode began 3 months ago. The symptom(s) are described as mild, unchanged and occurs continuously. Affected area(s) include thigh(s) and is spreading. The patient describes the affected area(s) as itchy and scaly. Associated symptoms include pruritus and scaling. Est care Pt is a 26 yo wf who has not seen primary care provider regularly for several years but has been seeing PHARMACY SERVICES REPRESENTATIVE including for current who comes in to establish care primarily for a rash present for several months on her thighs and in thigh creases. Has tried hydrocortisone which did not help. Has not tried any other otc meds. Also has been having some neck pain and noted lump on back of her neck that she is worried about.PMH Asthma as child with two ER visits, no hospitalizations; currently with [facility] when she gets sick PSH C sections x 2 CholycystectomyFHX DM -- father as adult Breast cancer -- maternal aunt Functional Status Date Functional Assessmen t No Information Instructions Date Instruction Additional Infor mation Ok to continue anti inflammatory medication naproxen (or ibuprofen, don't take both at the same time) and re-start muscle relaxer (Flexeril). Xray ordered of your back and you have been referred to physical therapy. Related to Chronic bilateral low back pain with left-sided sciatica This may be tinea ve rsicolor which is a skin fungus. Try clotrimazole cream twice daily. May take a couple of weeks to resolve. If no improvement consider referral to dermatology. Related to Rash Giving encouragement to exercise Related to Body mass index [BMI] 38.0-38.9, adult Lifestyle education regarding di et Related to Body mass index [BMI] 38.0-38.9, adult Start muscle relaxer . As discussed this can cause drowsiness,Switch to Naproxen.You can try IcyHot, [place] for the pain. Do the stretches I am giving you.Follow up if not improved., Related to Neck muscle spasm Giving encouragement to exercise Related to Body mass index (BMI) 40.0-44.9, adult Lifestyle education regarding di et Related to Body mass index (BMI) 40.0-44.9, adult Will have you go for labs. Follow up for results. Related to Hair loss Will send you for se rum test since we are ordering other labs. Related to Irregular menses Giving encouragement to exercise Related to Body mass index (BMI) 39.0-39.9, adult Lifestyle education regarding di et Related to Body mass index (BMI) 39.0-39.9, adult Giving encouragement to exercise Related to Body mass index (BMI) 40.0-44.9, adult Lifestyle education regarding di et Related to Body mass index (BMI) 40.0-44.9, adult use cream 2 times a day for 2-4 weeks and follow up if not resolving Related to Candidal skin infection Giving encouragement to exercise Related to Body mass index (BMI) 39.0-39.9, adult Lifestyle education regarding di et Related to Body mass index (BMI) 39.0-39.9, adult Will have you go for labs to test for MMR and Varicella immune status. Follow-up for results. Once I see the results I can complete your paperwork. Related to Immunity status testing Giving encouragement to exercise Related to Body mass index (BMI) 40.0-44.9, adult Lifestyle education regarding di et Related to Body mass index (BMI) 40.0-44.9, adult Will order x-ray of your right knee and have you referred to orthopedist. You should hear from our referral department in 1 week; if not, please follow-up with us.Naproxen 2 times per day as needed. Related to Chronic pain of right knee Ice, Naproxen. Rest. Related to Right thigh pain Will refer to dermat ology as requested. Related to Hyperpigmentation of skin Giving encouragement to exercise Related to Body mass index (BMI) 39.0-39.9, adult Lifestyle education regarding di et Related to Body mass index (BMI) 39.0-39.9, adult Will send you for so me labs. Follow-up for results.Increase water intake.Rest when you are able. Related to Myalgia Will send you for so me labs. Follow-up for results. Related to Fatigue, unspecified type Will send you for some labs. Rel ated to Hair loss Will refer you to ysical therapy. You should hear from our referral department in 1 week; if not, please follow-up with us.Will give you some stretches you can perform for now.OK to continue with Naproxen as needed. Related to Acute bilateral low back pain with bilateral sciatica Will have you sandrau led with our therapist.Follow-up with me after you see her. Related to Post depression Giving encouragement to exercise Related to Body mass index (BMI) 37.0-37.9, adult Lifestyle education regarding di et Related to Body mass index (BMI) 37.0-37.9, adult Increase fluids.Will give you a muscle relaxer to take at night. May cause drowsiness so take at home. Do not drink or drive with this medication.Follow-up in 2 weeks if not improved. Related to Myalgia Start Naproxen as ne eded for headache.Increase fluids.Rest.Can consider alternative medication if headaches become more frequent. Related to Migraine without aura and without status migrainosus, not intractable Giving encouragement to exercise Related to Obesity, unspecified Lifestyle education regarding di et Related to Obesity, unspecified Use good body mechan ics, sitting upright and avoid looking at your cell phone by looking down, etc.Can ICE the area twice a day with a bag of frozen peas (which you can reuse) for 10-15 minutes and take tylenol as allowed by your PHARMACY SERVICES REPRESENTATIVE. Related to Cervicalgia Use the cream twice a day until the rash is gone and then for a few days more. Related to Tinea corporis Giving encouragement to exercise Related to Obesity, unspecified Lifestyle education regarding di et Related to Obesity, unspecified Assessments Type Assessment Date No Information Patient Care Teams Name Effective Dates (start - stop) Status Members No Information
--- OUTSIDE RECORDS SUMMARY | 2024-10-10 12:14 | XMS_ITS ---
Author Name [facility] Organization Unknown History of Medication Use Medication Directions Dispensed Refills Start Date End Date Stat us cyclobenzaprine (FLEXERIL) 10 MG tablet Take 1 tablet (10 mg total) by mouth. 06/20/2024 active ferrous sulfate 324 (65 Fe) MG EC tablet Take 1 tablet (324 mg total) by mouth 2 (two) times a day. 06/20/2024 active esomeprazole (NexIUM) 40 MG capsule Take 1 capsule (40 mg total) by mouth. 06/20/2024 active rizatriptan (MAXALT) 10 MG tablet Take 1 tablet (10 mg total) by mouth as needed for migraine. May repeat in 2 hours if needed 06/20/2024 active ibuprofen 800 MG tablet Take 1 tablet (800 mg total) by mouth every 8 (eight) hours as needed. 06/19/2024 active SUMAtriptan (IMITREX) 25 MG tablet 06/19/2024 aborted galcanezumab-gnlm (Emgality) 120 MG/ML injection Inject 1 mL (120 mg total) under the skin every 30 (thirty) days. 06/19/2024 active Problems Problem Status Onset Date Problem Type Date of Resolution Source Migraine variant active EncounterDiagnosisAct CTTHNEMG Migraine without aura and without status migrainosus, not intractable active EncounterDiagnosisAct CTT HNEMG
[2024-10-10 12:33] VITALS: BP 100/80; PULSE 76; BMI 36.1
--- NOTE | 2024-10-10 12:33 | A.OFFVIS_ITS ---
Vital Signs 10/10/24 12:33 Height 5 ft 1 in Weight 191 lb 2.252 oz BMI 36.1 BP 100/80 Blood Pressure Location Rt brachial Position Sitting Pulse 76 Pulse Source Pulse Oximeter Intake Visit Reasons: pain in unspecific hand Intake Note: New patient internally referred by Karuna Navarro, [facility] [place]. Presents today for pain in unspecific hand. Location? Patient c/o b/l hand pain, right hand is worse. Fingertips turn a bluish color and have tingly sensation. How long? Since March 2023 Rx used? Patient takes Gabapentin 300mg with no relief. Community Health Navigator Required: No Accompanied by: Daughter Allergies No Known Allergies Allergy (Verified 10/10/24 12:38) Medication List - Last Reconciled 10/10/24 by Temi Gibbs MD adalimumab (Humira(CF) Pen) mg subcut cholecalciferol (vitamin D3) 1,250 mcg PO QWEEK 12 weeks cyclobenzaprine 10 mg PO BEDTIME gabapentin 100 - 300 mg (1 - 3 x 100 mg) PO BEDTIME 30 days galcanezumab-gnlm (Emgality Pen) 120 mg subcut ibuprofen mg PO ondansetron HCl (Zofran) 4 mg PO Q6H PRN phentermine 15 mg PO QAM rimegepant (Nurtec ODT) mg PO topiramate 50 mg PO DAILY zinc sulfate 50 mg PO DAILY 30 days HPI Comments Details: Patient is a 33 y.o. female with morbid obesity s/p gastric sleeve 02/2023, migraines, hidradenitis supprativa on Humira, and fibromyalgia who presents for evaluation of color change to hands and joint pain Patient states that she started noticing numbness to her right arm in 2019. Onset was gradual Numbness extends from the shoulder to the tips of the fingers. 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 Plan at that time was for PT but patient was unable to do this due to her schedule She then started to notice color change to fingers associated with exposure to cold in 2022. Of note this was after starting Humira for HS and her gastric sleeve. Denies rashes, photosensitivity, alopecia, oral/nasal ulcers, sicca symptoms, lymphadenopathy, chest pain/shortness of breath, foamy urine, lower extremity edema, muscle weakness Joint pain: shoulders, hips, knees. Unsure if the pain is worse in the AM or evening. No history of preeclampsia or placental insufficiency No history of DVTs or PEs Maternal aunt and cousin has lupus and fibromyalgia Sister has fibromyalgia [facility] Medical History Morbid obesity delivery delivered Asthma Surgical History H/O section H/O tubal ligation Hx of cholecystectomy Family History Father HTN (hypertension) Diabetes Mother HTN (hypertension) Social History Alcohol intake: never Patient Tobacco Use Status: Never used Tobacco Review of Systems Const Details: Review of Systems Constitutional: Denies fever, chills, unintentional weight loss ENT: Denies vision changes, eye pain or eye redness, dental caries, dry mouth GI: Denies nausea, vomiting, diarrhea, abdominal pain, change in BM Pulm: Denies SOB, GRIJALVA, hemoptysis, wheezing Cards: Reports chest pain. Skin: Denies rash, nail changes, photosensitivity, REHAB LIAISON: Denies weakness, paresthesias, recurrent falls MSK: as per HPI All other systems reviewed and are unremarkable except noted above Physical Exam Vital Signs: Last Vital Signs Pulse 76 10/10/24 12:33 BP 100/80 10/10/24 12:33 BMI result Body Mass Index 36.1 Physical Examination CONSTITUTIONAL Patient alert and cooperative. Well appearing and in no apparent painful distress HEENT Conjunctiva and sclera clear. Pupils equal round and reactive to light. No lymphadenopathy. CHEST/RESPIRATORY SYSTEM Normal respiratory effort and able to speak in complete sentences. Clear to auscultation bilaterally. No crackles, rales, rhonchi, wheezes heard. CARDIAC SYSTEM Regular rate and rhythm. S1 and S2 heard no murmurs. Radial pulses intact bilaterally MSK Hands: Good soa integration developer strength bilaterally. No deformities noted. No synovitis noted to the MCPs, PIPs or DIPs. No tenderness to palpation of these joints. Wrists: Full range of motion at the wrists without pain. No tenderness to palpation or synovitis noted to the wrists. Elbows: Full range of motion without pain. No tenderness, weakness, swelling, increased warmth or erythema. Shoulders: Full range of motion without pain. No tenderness, weakness, swelling, increased warmth or erythema. Hips: Full range of motion without pain. Hip bursa: No tenderness to palpation Knees: Full range of motion. No tenderness, swelling, increased warmth or erythema.?No effusion or crepitations Ankles: Full range of motion. No tenderness, swelling, increased warmth or erythema.? Feet: Negative squeeze test. No tenderness to palpation or swelling of the MTPs. Tender points:?No tenderness to palpation of the bilateral trapezius, supraspinatus, greater trochanters, anterior costochondral junctions, bilateral gluteal areas, bilateral suboccipital muscle insertions SKIN Skin intact without rashes. Normal capillary nail folds Results Reviewed Results Reviewed: Laboratory Tests 01/29/24 04/22/24 04/22/24 12:25 00:20 07:26 WBC 5.1 RBC 3.87 L Hgb 10.5 L Hct 32.1 L Plt Count 157 L Sodium 142 Potassium 3.9 Chloride 109 H Carbon Dioxide 26 BUN 8 L Creatinine 0.76 Rheumatoid Factor < 13.0 IRVIN Screen NEGATIVE XR C Spine 02/2024 FINDINGS: The cervical spine is imaged through the C7 vertebral body. Relative straightening of the cervical lordosis. Vertebral body heights and intervertebral disc spaces are maintained. Prevertebral soft tissues are within normal limits. Assessment & Plan Assessment & Plan (1) Raynauds disease: Code(s): I73.00 - Raynaud's syndrome without gangrene Category: Medical Qualifiers: Raynaud?s-associated gangrene presence: without gangrene Qualified Code(s): I73.00 - Raynaud's syndrome without gangrene Plan: #Raynaud's Phenomenon Patient with Raynaud's phenomenon as evidenced by color change to tips of her fingers on exposure to cold or emotional stress. Raynaud's can be primary or secondary. Prevalence of primary Raynaud's is estimated to be 3% to 5%, with prevalence being higher in colder climate, women, younger age group and in patients with a family history of autoimmune disease. This affects women more than men because estradiol increases the expression of a lpha 2c adrenal receptors on smooth muscle cells leading to increased cutaneous vasoconstriction. We can also see secondary Raynaud's associated with autoimmune diseases such as myositis, scleroderma, lupus, antiphospholipid syndrome and undifferentiated connective tissue disease. At this time there is no evidence to suggest that this patient has an underlying autoimmune connective tissue disease such as mentioned above with no history of oral/nasal ulcers, proximal muscle weakness, skin tightening, DVT, PE or recurrent 2nd trimester losses. It is interesting to note that she is on an anti TNF (Humira) for her hidradenitis suppurativa. Anti TNF have a well-known history of inducing lupus and or lupus-like syndromes including Raynaud's. At this time I think her Raynaud's may be induced by her TNF but she is particularly genetically susceptible given her family history of autoimmune disease. I recommended that she follow up with her boiler service technician for alternate treatment of her hidradenitis suppurativa although it is possible that even stopping the TNF we will not resolve the Raynaud's. It is reassuring that she has normal nail fold capillaries, no signs or symptoms of an autoimmune connective tissue disease and no ulcers. It is reasonable that we check lab work looking for underlying autoimmune connective tissue disease but at this time I have a low suspicion. Plan - CBC, CMP, ESR, CRP, IRVIN, PAWEL, dsDNA, C3, C4, APS labs - Consider alternative treatment for HS - Keep core warm - Can consider CCBs if symptoms persist after stopping anti TNF References: 1. Annie MCDANIELS, Adeel R. Adalimumab-induced systemic lupus erythematosus: A case report and review of the literature. JAMES Open Med Case Rep. 2022May 22;11:[id number]. doi: 10.1177/[id number]. PMID: [id number]; PMCID: [id number]. 2. Destin H, Dionne DS, [place]. Adalimumab-induced lupus panniculitis. Lupus. 2014 Aug;23(13):1443-4. doi: 10.1177/[id number]. Epub 2013May 03. PMID: [id number]. Plan I spent 45minutes reviewing the record and labs, seeing the patient, discussing the treatment plan and documenting in the medical record ? Orders: Orders IRVIN Reflex Titer and Pattern Today I73.00 - Raynaud's syndrome without gangrene Complement C3 Today I73.00 - Raynaud's syndrome without gangrene Complement C4 Today I73.00 - Raynaud's syndrome without gangrene DNA Double Stranded-Crithidia Today I73.00 - Raynaud's syndrome without gangrene Erythrocyte Sedimentation Rate Today I73.00 - Raynaud's syndrome without gangrene Protein Creatinine Ratio, Ur Today I73.00 - Raynaud's syndrome without gangrene Sjogren's Antibodies Today I73.00 - Raynaud's syndrome without gangrene Lupus Anticoagulant Panel Today I73.00 - Raynaud's syndrome without gangrene Beta-2 Glycoprotein Antibody Today I73.00 - Raynaud's syndrome without gangrene Complete Blood Count Auto Diff Today I73.00 - Raynaud's syndrome without gangrene Anti Extractable Nuclear Ag Today I73.00 - Raynaud's syndrome without gangrene Anti DNA DS Antibody Today I73.00 - Raynaud's syndrome without gangrene C Reactive Protein Today I73.00 - Raynaud's syndrome without gangrene UA w Microscopic Today I73.00 - Raynaud's syndrome without gangrene Cardiolipin Antibodies Today I73.00 - Raynaud's syndrome without gangrene Comprehensive Met. Panel Today I73.00 - Raynaud's syndrome without gangrene Coding Level of Care Code New Pt Level 4 (03975) Diagnoses Raynaud's disease without gangrene I73.00 Raynaud?s-associated gangrene presence: without gangrene
== END 2024-10-10 13:32 | disposition home or self-care (01) ==
PROVIDERS: PCP Internal Medicine; Visit Provider Student in an Organized Health Care Education/Training Program
DX: I73.00 Raynaud's syndrome without gangrene (principal)
CPT/HCPCS: 99204

== ENCOUNTER 2024-10-16 09:39 | Outpatient (REF) | payer OTHER, SELFPAY ==
[2024-10-16 10:13] LABS: MANUAL DIFF FLAG NO
[2024-10-16 10:47] LABS: Basophils Percent Auto 0.2 % (0-2); Eosinophils Absolute Auto 0.1 X10*3/uL (0.0-0.4); Eosinophils Percent Auto 1.1 % (0-4); Hemoglobin 10.1 g/dl (12.0-16.0); Imm Gran Abs Auto 0.01 X10*3/uL (0.00-0.03); Imm Gran Pct Auto 0.2 % (0.0-0.4); Lymphocytes Absolute Auto 2.5 X10*3/uL (1.2-4.9); Lymphocytes Percent Auto 43.8 % (20-40); Mean Corpuscular HGB Conc 30.6 g/dl (31.0-35.0); Mean Corpuscular Hemoglobin 24.9 pg (27.0-33.0); Mean Corpuscular Volume 81.5 fL (80.0-98.0); Mean Platelet Volume 11.6 fL (9.4-12.3); Monocytes Absolute Auto 0.3 X10*3/uL (0.1-1.2); Monocytes Percent Auto 5.3 % (2-11); Neutrophils Absolute Auto 2.8 x10*3/uL (2.0-8.3); Neutrophils Percent Auto 49.4 % (45-73); Platelet Count 201 X10*3/uL (160-400); Red Blood Count 4.05 X10*6/uL (4.20-5.50); Red Cell Distribution Width 13.4 % (11.0-16.0); White Blood Count 5.6 X10*3/uL (4.8-10.8)
[2024-10-16 11:06] LABS: Appearance Urine Clear; Color Urine Yellow; Glucose Urine UA Negative (Negative); Leukocyte Esterase Urine Negative (Negative); Nitrite Urine Negative (Negative); PH 5.5 (5.0-9.0); Specific Gravity - Urine >= 1.030 (1.005-1.025); Urine Blood Negative (Negative); Urine Ketones Negative (Negative); Urine Protein Negative (Neg-Trace)
[2024-10-16 11:13] LABS: Bacteria Urine None Seen (None Seen); Hyaline Casts Urine 0-2 /LPF (0-2); RBC Urine 0-2 /HPF (0-2); WBC Urine 0-5 /HPF (0-5)
[2024-10-16 11:24] LABS: Erythrocyte Sedimentation Rate 26 MM/HR (0-20)
[2024-10-16 11:54] LABS: Alanine Aminotransferase 16 U/L (0-31); Alkaline Phosphatase 48 U/L (39-117); Anion Gap 8 (12-20); Aspartate Amino Transferase 21 U/L (5-31); Bilirubin Total 0.2 mg/dL (0.0-1.0); Blood Urea Nitrogen 7 mg/dL (9-16); C Reactive Protein < 0.10 mg/dL (< or = 0.50); Calcium 9.2 mg/dL (8.4-10.2); Carbon Dioxide 24 mmol/L (22-29); Chloride 112 mmol/L (96-108); Estimated Glomerular Filt Rate > 60; Glucose Random 88 mg/dL (60-115); Potassium 3.7 mmol/L (3.3-5.1); Sodium 140 mmol/L (135-145); Total Protein 7.3 g/dL (6.5-8.0)
[2024-10-16 12:12] LABS: Creatinine Urine 330.63 mg/dL; Protein/Creatinine Ratio, Ur 0.04 (<0.2); Total Protein Urine Random 14 mg/dL (<12)
[2024-10-17 09:48] LABS: Complement C3 142 mg/dL (83-193)
[2024-10-17 16:08] LABS: Cardiolipin IgG Ab <2.0 GPL-U/mL; Cardiolipin IgM Ab <2.0 MPL-U/mL
[2024-10-17 16:39] LABS: Anti Nuclear Antibody Screen NEGATIVE (NEGATIVE)
[2024-10-17 22:03] LABS: Anti DNA DS Antibody 1 IU/mL; Antibody to SS-A Antigen <1.0 NEG AI (<1.0 NEG); Antibody to SS-B Antigen <1.0 NEG AI (<1.0 NEG); SM/Ribonucleoprotein Ab <1.0 NEG AI (<1.0 NEG); Smith Protein <1.0 NEG AI (<1.0 NEG)
[2024-10-19 00:23] LABS: Hexagonal Phase Neutralization Negative (Negative); PTT (LAC) Screen 43 sec (<=40)
[2024-10-19 18:48] LABS: DNAds, Crithidia Antibody 1:20 titer (<1:10); DNAds, Crithidia Antibody Positive (Negative)
[2024-10-19 20:09] LABS: Beta-2 Glycoprotein IgA <2.0 U/mL (<20.0); Beta-2 Glycoprotein IgG <2.0 U/mL (<20.0); Beta-2 Glycoprotein IgM <2.0 U/mL (<20.0)
== END 2024-10-16 09:40 | disposition home or self-care (01) ==
LOC: HO.LAB 09:39
PROVIDERS: PCP Internal Medicine; Visit Provider Student in an Organized Health Care Education/Training Program
DX: I73.00 Raynaud's syndrome without gangrene (principal)
CPT/HCPCS: 36415; 80053; 81001; 82570; 84156; 85025; 85597; 85598; 85613; 85652; 85730; 86038; 86140; 86146; 86147; 86160; 86225; 86235; 86255